=== PATIENT | male | born 1970 | race Caucasian/White ===

== ENCOUNTER 2020-04-21 05:23 | Inpatient (IN) | payer BC, SELFPAY ==
[2020-04-21] VITALS (7 sets, daily range): BP systolic 110–169; BP diastolic 56–92; PULSE 104–128; RESP 17–26; TEMP 37.2–37.9; O2SAT 96–99; BMI 32.1
--- NOTE | 2020-04-21 05:36 | EKG12_ITS ---
Test Reason : SOB Blood Pressure : / mmHG Vent. Rate : 120 BPM Atrial Rate : 120 BPM P-R Int : 140 ms QRS Dur : 090 ms QT Int : 328 ms P-R-T Axes : -05 055 -17 degrees QTc Int : 463 ms Sinus tachycardia Otherwise normal ECG Confirmed by RUBA HARKINS, MANN ([id number]), loan expeditor BRYCE MALAVE ([id number]) on 05/04/2020 9:49:40 A M Referred By: DR MATHIS Confirmed By:BUDDY YEH MD
--- NOTE | 2020-04-21 05:39 | ED.DCSUM_ITS ---
History of Present Illness Chief Complaint: General Illness Informant: Patient, Manager [employer] Onset: Yesterday Context: Gradual Onset Timing: Continuous Quality: mult sx Location: all over Current Severity: Severe Maximum Severity: Severe Worsened by: nothing Relieved by: nothing Associated Symptoms: watery nonbloody diarrhea, malaise, fevers/chills, myalgias, cough Narrative: Patient states he is feeling very bad, he started getting sick yesterday, severe myalgias, headache, fevers, he has had a mild nonproductive cough and feels mildly short of breath. Nonlateralizing nonpleuritic chest tightness. No recent leg pain or swelling. No history of DVT or PE. After starting to feel this way, he went to an urgent care yesterday and had an outpatient test for COVID-19 run, that is still pending. He has had no contact with anyone with COVID-19 that he knows of. He is healthy, takes medications for PTSD. - Past Medical History (1) PTSD (post-traumatic stress disorder) Status: Chronic Past Medical History - Allergies and Home Meds Allergies/Adverse Reactions: Allergies No Known Allergies Allergy (Verified 04/21/20 05:30) Smoking Status: Never smoker - Family History Paternal Family History: Reports: No pertinent history Review of Systems General: Reports: Chills, Fever, Malaise, Subjective, Sweats Eyes: Denies: Visual changes - bilaterally, Diplopia ENT: Reports: Rhinorrhea. Denies: Sore throat Cardiovascular: Reports: Chest pain. Denies: Palpitations Respiratory: Reports: Dyspnea, Cough. Denies: Sputum, Orthopnea Gastrointestinal: Reports: Diarrhea. Denies: Abdominal pain, Nausea, Vomiting, Melena, Hematochezia Genitourinary: Denies: Dysuria, Hematuria, Frequency Musculoskeletal: Reports: Myalgias. Denies: Neck pain, Swelling Skin: Denies: Rash, Wounds Neurological: Reports: Headache. Denies: Weakness, Numbness Physical Exam Vital Signs/Narrative: Vital Signs Temp Pulse Resp BP Pulse Ox 04/21/20 05:30 100.9 F H 124 H 21 H 123/90 H 95 04/21/20 05:29 124 H 29 H 123/90 H 95 04/21/20 05:24 100.3 F H 125 H 20 H 96 Inital Vital Signs reviewed: Yes General: Well nourished, Well developed, No Acute Distress Head: Normocephalic, Atraumatic Eyes: Perrl, EOMI ENT: Moist mucous membranes, No rhinorrhea Neck: Supple, Nontender, No lymphadenopathy, No JVD Cardiovascular: Regular rate, Regular rhythm, No murmurs, Tachycardia Respiratory: No distress, CTA bilaterally, Chest nontender Abdomen: Soft, Nontender, Nondistended, Hyperactive bowel sounds Back: Nontender, Normal Inspection. Negative for: CVA tenderness Extremities: Nontender, No edema. Negative for: Calf Tenderness Skin: Normal color, No rash, No Trauma Neurological: Alert, Oriented x3, Cranial nerves II-XII grossly intact, Normal Strength, Normal Sensation Psychological: Normal affect, Normal Mood Diagnostic/Tx/Re-eval Laboratory Tests 04/21/20 04/21/20 04/21/20 Range/Units 05:35 05:35 05:35 WBC 24.3 H (4.4-11.0) K/mm3 RBC 6.17 (4.6-6.2) M/mm3 Hgb 15.3 (13.0-16.5) g/dL Hct 47.0 (40-54) % MCV 76.2 L (80-94) fL MCH 24.8 L (27.0-32.0) pg MCHC 32.6 (32-36) g/dL RDW Std Deviation 41.4 (35.1-43.9) fl RDW Coeff of Angella 16.2 H (11.6-14.6) % Plt Count 268 (150-450) K/mm3 MPV 10.7 (6.2-12.0) fl Immature Gran % (Auto) 0.600 (0.0-0.9) % Neut % (Auto) 92.2 H (47-70) % Lymph % (Auto) 3.6 L (19-41) % Rosebud % (Auto) 3.0 (0-10) % Eos % (Auto) 0.4 (0-5) % Baso % (Auto) 0.2 (0-1) % Absolute Neuts (auto) 22.4 H (2.0-7.7) X10^3/uL Absolute Lymphs (auto) 0.87 (0.83-4.51) X10^3/uL Nucleated RBC % 0 (0-5) % Differential Comment SCANNED Sodium 130 L (136-145) mmol/L Potassium 2.7 L* (3.5-5.1) mmol/L Chloride 104 (98-107) mmol/L Carbon Dioxide 14.0 L (21.0-32.0) mmol/L Anion Gap 12 (5-15) BUN 20 H (7-18) mg/dL Creatinine 2.18 H (0.70-1.30) mg/dL Estim Creat Clear Calc 47.13 ml/min Est GFR (MDRD) Af Amer 41 L (>60) mL/min Est GFR (MDRD) Non-Af 34 L (>60) mL/min BUN/Creatinine Ratio 9.2 L (10-20) RATIO Glucose 161 H (74-106) mg/dL Lactic Acid 2.0 (0.4-1.9) mmol/L Calcium 8.0 L (8.5-10.1) mg/dL Total Bilirubin 0.70 (0.20-1.00) mg/dL AST 13 L (15-37) U/L ALT 19 (16-61) U/L Alkaline Phosphatase 144 H (45-117) U/L Troponin I < 0.015 (<0.045) ng/mL Total Protein 8.6 H (6.4-8.2) g/dL Albumin 3.5 (3.2-5.0) g/dL Globulin 5.1 H (2.2-4.2) g/dL Albumin/Globulin Ratio 0.7 L (0.9-2.4) RATIO - Rhythm Strip Rhythm Strip: Sinus Tach Rate: 120 Ectopy: None - EKG Initial EKG Interpretation: No Acute Injury Pattern, Sinus Tachycardia Prior: No Prior - Medical Decision Making Patient feeling a little better with IV fluids, Toradol, albuterol puffs from an MDI, and Tylenol for his fever. He has significant hypokalemia, and on my interpretation, 1 view chest x-ray appears to show right lower lobe pneumonia although radiology suggests it is more likely due to subsegmental atelectasis. With his significant leukocytosis, I chose to cover him empirically with antibiotics to cover pneumonia. Highly suspicious for COVID-19, so since he will need to be admitted, we reswabbed him so that we can get a stat result so that we can admit him to the appropriate unit. He is clinically and hemodynamically stable at this time. ED Disposition - Plan for ED Patient: Disposition: Acute Care Hospital [facility] Diagnosis: SILVINA (acute kidney injury), Hypokalemia due to excessive gastrointestinal loss of potassium, Dehydration, Severe sepsis, Lower respiratory tract infection
[2020-04-21 05:59] LABS: Absolute Lymphocyte Count 0.87 X10^3/uL (0.83-4.51); Absolute Neutrophil Count 22.4 X10^3/uL (2.0-7.7); Basophil# 0.05 X10^3/uL; Basophil% 0.2 % (0-1); Eosinophils% 0.4 % (0-5); Hemoglobin 15.3 g/dL (13.0-16.5); Lymphocyte # 0.87 X10^3/ul (4.0); Lymphocyte % 3.6 % (19-41); Mean Corp Hgb Conc 32.6 g/dL (32-36); Mean Corpuscular Hgb 24.8 pg (27.0-32.0); Mean Corpuscular Volume 76.2 fL (80-94); Mean Platelet Vol. 10.7 fl (6.2-12.0); Monocyte# 0.72 X10^3/uL; NRBC Flagged by Analyzer 0 % (0-5); Neutrophil # 22.44 X10^3/uL (2.7-7.7); Neutrophil % 92.2 % (47-70); POSITIVE DIFFERENTIAL YES; POSITIVE MORPHOLOGY YES; Platelet Count 268 K/mm3 (150-450); RBC Distribution Width CV 16.2 % (11.6-14.6); RBC Distribution Width SD 41.4 fl (35.1-43.9); Red Blood Count 6.17 M/mm3 (4.6-6.2); White Blood Count 24.3 K/mm3 (4.4-11.0)
[2020-04-21] MEDS: Ketorolac 15 MG/ML Vial 30 MG IV (06:00)
[2020-04-21] MEDS: 0.9% Normal Saline 1,000 ML 999 ML IV (06:00)
[2020-04-21] MEDS: Acetaminophen 500 MG Tablet 1000 MG PO (06:01)
--- NOTE | 2020-04-21 06:02 | RAD_ITS ---
STUDY: X-RAY CHEST REASON FOR EXAM: Male, 49 years old. COUGH AND SOB TECHNIQUE: Single AP portable view of the chest. COMPARISON: None. FINDINGS: The lungs are underexpanded. Subsegmental atelectasis is noted in the right lung base. There is no demonstrated pleural abnormality. Normal size heart. Normal mediastinum and sanjana. Normal visualized pulmonary arteries. Normal visualized aortic arch and descending thoracic aorta. Normal visualized thoracic spine. There is degenerative osteoarthritis of the bilateral shoulders. There is no demonstrated abnormality of the visualized soft tissue structures of the upper abdomen. RAD/Chest 1 View (Portable) IMPRESSION: Degenerative changes, as described above. No demonstrated acute cardiopulmonary process. Electronically Signed: Karen Lopez, at 6:54 EDT Tel , Service support ,
[2020-04-21 06:04] LABS: Differential Indicated SCAN CRITERIA MET
[2020-04-21 06:45] LABS: Differential Comment SCANNED
[2020-04-21] MEDS: Ceftriaxone 1 GM/50 ML BAG IV (07:00)
[2020-04-21 07:06] LABS: ALB/GLOB Ratio 0.7 RATIO (0.9-2.4); AST(SGOT) 13 U/L (15-37); Alanine Aminotransfer ALT/SGPT 19 U/L (16-61); Albumin, Serum 3.5 g/dL (3.2-5.0); Alkaline Phosphatase 144 U/L (45-117); Anion Gap 12 (5-15); BUN 20 mg/dL (7-18); BUN/Creat Ratio 9.2 RATIO (10-20); Chloride 104 mmol/L (98-107); Creatinine, Serum 2.18 mg/dL (0.70-1.30); EST Glomerular Filtration Rate 34 mL/min (>60); Est Glom Filt Rate - Afr Amer 41 mL/min (>60); Estimated Creatinine Clearance 47.13 ml/min; Globulin 5.1 g/dL (2.2-4.2); Glucose 161 mg/dL (74-106); Potassium 2.7 mmol/L (3.5-5.1); Protein, Total 8.6 g/dL (6.4-8.2); Sodium Level 130 mmol/L (136-145)
[2020-04-21] MEDS: Potassium Chloride 10mEq/100mL 10 MEQ/100 ML IV.SOLN. 100 MEQ IV BOLUS ×5 (07:48→14:37)
[2020-04-21] MEDS: 0.9% Normal Saline 1,000 ML 250 ML IV (07:50)
[2020-04-21 08:30] LABS: D-Dimer Quantitative (DVT/PE) 8.23 FEU/ug/m (0.27-0.49)
--- NOTE | 2020-04-21 09:09 | HP.PCM_ITS ---
History of Present Illness Date of Admission: 04/21/20 Mr Davison is 49 yo male who presented to the ED on 04/21/2020 with severe myalgias, DEJESUS, fevers, diaphoresis, a non-productive cough, decreased po intake and severe diarrhea that all started on but got significantly worse in the last 12-18 hrs. He states that his diarrhea is watery and profuse and that he has had about 10-12 BM overnight. He denies any recent abx usage or hospitalizations. He denies knowledge of any sick contacts but is from [place] and recently flew here as they are moving to [place] and he has business here. His only PMH is PTSD and takes medications only for this. His temp in the ED was 100.9 he is tachycardic and tachypneic. Sats are stable on RA. His white count is 24.3. His D-dimer is 8.23. He is mildly hyponatremic, markedly hypokalemic at 2.7, his HCO3 is 14, BUN is 20 and sCr is 2.18. COVID-19 is pending at admission. Past Medical History Past Medical History (Chronic Problems): Chronic Problems PTSD (post-traumatic stress disorder) (Chronic) Allergies No Known Allergies Allergy (Verified 04/21/20 05:30) Surgical History: noncontributory Psychiatric History: Post traumatic stress Lives: Spouse/ Significant Other Smoking Status: Never smoker Alcohol: Rare Drugs: None - *Family History Paternal History Items: No pertinent history Review of Systems Constitutional: Reports: Anorexia, Chills, Fever, Malaise, Weakness, Fatigue. Denies: Night Sweats, Weight Change Eyes: Denies: Blurred vision, Double vision, Drainage, Eyelid Inflammation, Pain, Redness, Vision Change HEENT: Reports: Head Aches. Denies: Difficulty Hearing, Difficulty Swallowing, Dysphasia, Ear Pain, Eye Pain, Hard of Hearing, Nasal bleeding, Nasal Congestion, Post Nasal Drip, Sinus Congestion, Sinus Drainage, Sore Throat, Visual Changes Cardiovascular: Denies: Chest Pain, Claudication, Chest Pressure, Chest Tightness, Edema, Heaviness, Light Headedness, Orthopnea, Palpitations, Paroxysmal Noc. Dyspnea, Syncope Respiratory: Reports: Cough, Shortness of Breath, Shortness of breath upon exertion. Denies: Hemoptysis, Pleuritic Pain, Shortness of breath at rest, Sputum production, Wheezing Gastrointestinal: Reports: Diarrhea. Denies: Abdominal Pain, Constipation, Dyspepsia, Hematemesis, Hematochezia, Nausea, Melena, Vomiting Genitourinary: Denies: Dysuria, Frequency, Hematuria, Hesitancy, Incontinence, Nocturia, Retention, Urgency Musculoskeletal: Reports: Muscle pain. Denies: Arm Pain, Back Pain, Foot Pain, Hand Pain, Joint Pain, Joint stiffness, Joint swelling, Joint Tenderness, Leg Pain, Neck Pain, Shoulder Pain Skin: Denies: Dryness, Jaundice, Lesions, Pruritis, Rash, Skin Changes, Wounds Neurological: Reports: Headaches. Denies: Balance problems, Blurred vision, Double vision, Change in Speech, Slurred speech, Confusion, Difficulty swallowing, Focal weakness, Incoordination, Numbness, Tingling, Tremor, Seizures Psychiatric: Reports: Anxiety, Depression Endocrine: Denies: Change in Body Habitus, Heat/ Cold Intolerance, Polydipsia, Polyuria Hematologic/ Lymphatic: Denies: Adenopathy, Anemia, Easy Bruising, Easy Bleeding, Petechiae, Purpura VTE Information - Inpt Only VTE Present on Admission: No VTE Mechan Device Prophylaxis: None VTE Pharm Prophylaxis ordered?: Yes Patient Problems: Active and Suspected Problems 2019 novel coronavirus disease (COVID-19) (Acute) SILVINA (acute kidney injury) (Acute) Hypokalemia due to excessive gastrointestinal loss of potassium (Acute) Dehydration (Acute) Severe sepsis (Acute) - Physical Exam Vitals/I&O's: Vital Signs Temp Pulse Resp BP Pulse Ox 98.2 F 98 20 H 114/80 99 04/21/20 08:09 04/21/20 08:09 04/21/20 08:09 04/21/20 08:09 04/21/20 08:09 Oxygen Delivery Method Room Air Weight: 113.398 kg Body Mass Index (BMI) 32.1 Intake and Output for Last 24 Hours 04/19/20 04/20/20 04/21/20 23:59 23:59 23:59 Intake Total 1050 / 1050 Balance 1050 / 1050 General: Alert, Oriented x3, Cooperative, Well developed, Well nourished, - - diaphoretic and toxic appearing HEENT: Atraumatic, PERRLA, EOMI, Normocephalic, EAC Clear Oral: Moist Mucosa, No Gingival or Mucosal Lesions/ Ulcerations Neck: Supple, No JVD, Negative Carotid Bruits, Negative Hepatojugular Reflux, No Nodes, No Nuchal Rigidity, Trachea Midline, Thyroid Normal Size and Texture Lungs: Clear to auscultation, Normal air movement, No rhonchi, No wheeze, No rales Cardiovascular: Regular Rhythm, Normal S1, Normal S2, No murmurs, No Ectopic Activity, Tachycardic Abdomen: Bowel Sounds Present, Soft, Non Tender, Non-Distended, No Hepato- splenomegaly, No hernias noted Extremities: No clubbing, No cyanosis, No edema, Capillary Refill Less than 3 Seconds, Peripheral Pulses Normal Skin: No rashes, No breakdown Musculoskeletal: No Tenderness to Palpation of Joints or Extremities, No Muscle Wasting Lymphatic: No Cervical, Supraclavicular, or Inguinal Adenopathy Neurological: Cranial nerves II-XII grossly intact, Deep Tendon Reflexes 2+/4 and Symmetrical, Neuro grossly intact, Motor Exam 5/5 strength throughout, Muscle tone normal, Sensory exam intact to light touch and pain, Coordination normal Psych/Mental Status: Normal Affect, Appropriate, Alert and oriented to time, place, person, mood and affect Laboratory Results 04/21/20 05:35: WBC 24.3 H, RBC 6.17, Hgb 15.3, Hct 47.0, MCV 76.2 L, MCH 24.8 L , MCHC 32.6, RDW Std Deviation 41.4, RDW Coeff of Angella 16.2 H, Plt Count 268, MPV 10.7, Immature Gran % (Auto) 0.600, Neut % (Auto) 92.2 H, Lymph % (Auto) 3.6 L, [place] % (Auto) 3.0, Eos % (Auto) 0.4, Baso % (Auto) 0.2, Absolute Neuts (auto) 22.4 H, Absolute Lymphs (auto) 0.87, Nucleated RBC % 0, Differential Comment S CANNED 04/21/20 05:35: Sodium 130 L, Potassium 2.7 L*, Chloride 104, Carbon Dioxide 14.0 L, Anion Gap 12, BUN 20 H, Creatinine 2.18 H, Estim Creat Clear Calc 47.13, Est GFR (MDRD) Af Amer 41 L, Est GFR (MDRD) Non-Af 34 L, BUN/Creatinine Ratio 9.2 L, Glucose 161 H, Calcium 8.0 L, Total Bilirubin 0.70, AST 13 L, ALT 19, Alkaline Phosphatase 144 H, Troponin I < 0.015, Total Protein 8.6 H, Albumin 3.5, Globulin 5.1 H, Albumin/Globulin Ratio 0.7 L 04/21/20 05:35: Lactic Acid 2.0 04/21/20 05:55: D-Dimer Quant (PE/DVT) 8.23 H* 04/21/20 07:05: COVID-19 (LINDA) Pending Current Medications Sodium Chloride () 1,000 mls @ 999 mls/hr IV .Q1H1M ALEX Last Admin: 04/21/20 07:50 Dose: 250 mls/hr Documented by: Assessment/Plan All Active Problems 2018 novel coronavirus disease (COVID-19) (Acute) SILVINA (acute kidney injury) (Acute) Hypokalemia due to excessive gastrointestinal loss of potassium (Acute) Dehydration (Acute) Severe sepsis (Acute) Severe Sepsis 2/2 Suspected COVID-19 -COVID pending--> high suspicion for positive and if neg will repeat in 48 hrs -will get resp viral panel if neg COVID -supportive care -start Decadron 6 mg daily (day 07/15) -Heparin ggt -hold on Remdesivir and Convalescent plasma as pt is on RA -CTX and Azithro for now -cx pending -apap for fever SILVINA -per pt no known renal disease at baseline -LR at 150 cc/hr for now -repeat BMP in am Metabolic Acidosis -suspect 2/2 diarrhea and SILVINA -check VBG -repeat AM lab Diarrhea -likely related to COVID -will check enteric panel -no recent abx use -if panel neg will start prn Imodium -IVF to maintain hydration Hypokalemia -40 mEq IV -recheck and mag in am Hyponatremia -likely hypovolemic in nature -IVF and repeat in am Elevated D-dimer -with SILVINA unable to CTA now -start heparin ggt and transition to LMWH vs NOAC as renal fx allows -CTA once renal fxn improved to drive length of treatment PTSD -will start meds once doses are known DVT prophylaxis -hep ggt Code Status -Full Inpatient E&M: 71631 Init Hosp L3
[2020-04-21 09:55] LABS: Reflex Lactate? Y
[2020-04-21 10:38] LABS: Lactic Acid 1.9 mmol/L (0.4-1.9)
[2020-04-21 10:42] LABS: Blood Gas Specimen Type VEN; O2 Delivery Device Room Air; VBG BASE EXCESS -10 mmol/L (-1.0-3.5); VBG Bicarbonate 18 mmol/L (22-26); VBG PO2 24 mmHg (25-40); VBG SO2 33 % (50-70); VBG TCO2 19 mmol/L (23-33); VBG pCO2 40.3 mmHg (41-51); VBG pH 7.25 (7.32-7.42)
[2020-04-21] MEDS: Lactated Ringers 1,000 ML 150 ML IV (10:45)
[2020-04-21] MEDS: Loperamide 2 MG Capsule PO (13:08)
[2020-04-21] MEDS: Acetaminophen 325 MG Tablet 650 MG PO ×2 (13:08→20:13)
[2020-04-21] MEDS: Lactated Ringers 1,000 ML 200 ML IV ×2 (15:40→20:24)
[2020-04-21] MEDS: busPIRone 5 MG Tablet 10 MG PO (21:31)
[2020-04-21] MEDS: Gabapentin 300 MG Capsule PO (21:32)
[2020-04-21] MEDS: Temazepam 15 MG Capsule 30 MG PO (21:32)
[2020-04-21] MEDS: Topiramate 100 MG Tablet PO (21:32)
[2020-04-22] VITALS (13 sets, daily range): BP systolic 93–146; BP diastolic 56–85; PULSE 81–159; RESP 15–20; TEMP 36.4–38.6; O2SAT 97–100
[2020-04-22] MEDS: Lactated Ringers 1,000 ML 200 ML IV ×4 (02:00→21:05)
[2020-04-22] MEDS: busPIRone 5 MG Tablet 10 MG PO (05:27)
[2020-04-22] MEDS: Acetaminophen 325 MG Tablet 650 MG PO ×3 (05:27→21:51)
[2020-04-22] MEDS: Gabapentin 300 MG Capsule PO ×2 (05:27→21:48)
[2020-04-22 05:29] LABS: Basophil# 0.02 X10^3/uL; Basophil% 0.2 % (0-1); Eosinophil# 0.04 X10^3/uL; Eosinophils% 0.4 % (0-5); Hematocrit 42.3 % (40-54); Hemoglobin 13.7 g/dL (13.0-16.5); Lymphocyte % 7.1 % (19-41); Mean Corp Hgb Conc 32.4 g/dL (32-36); Mean Corpuscular Hgb 24.5 pg (27.0-32.0); Mean Corpuscular Volume 75.7 fL (80-94); Mean Platelet Vol. 11.1 fl (6.2-12.0); Monocyte# 0.36 X10^3/uL; Monocyte% 3.2 % (0-10); NRBC Flagged by Analyzer 0 % (0-5); Neutrophil # 9.97 X10^3/uL (2.7-7.7); Neutrophil % 88.6 % (47-70); POSITIVE MORPHOLOGY YES; Platelet Count 208 K/mm3 (150-450); RBC Distribution Width CV 15.2 % (11.6-14.6); RBC Distribution Width SD 41.1 fl (35.1-43.9); Red Blood Count 5.59 M/mm3 (4.6-6.2); White Blood Count 11.3 K/mm3 (4.4-11.0)
[2020-04-22 05:39] LABS: Differential Indicated SCAN CRITERIA MET
[2020-04-22 05:51] LABS: ALB/GLOB Ratio 0.6 RATIO (0.9-2.4); AST(SGOT) 18 U/L (15-37); Alanine Aminotransfer ALT/SGPT 17 U/L (16-61); Albumin, Serum 2.8 g/dL (3.2-5.0); Alkaline Phosphatase 117 U/L (45-117); Anion Gap 8 (5-15); BUN 26 mg/dL (7-18); Calcium,Total 8.2 mg/dL (8.5-10.1); Chloride 105 mmol/L (98-107); EST Glomerular Filtration Rate 38 mL/min (>60); Est Glom Filt Rate - Afr Amer 46 mL/min (>60); Estimated Creatinine Clearance 51.38 ml/min; Globulin 4.5 g/dL (2.2-4.2); Glucose 117 mg/dL (74-106); Magnesium 1.6 mg/dL (1.6-2.6); Phosphorus 2.3 mg/dL (2.5-4.9); Protein, Total 7.3 g/dL (6.4-8.2); Sodium Level 132 mmol/L (136-145); Thyroid Stim Hormone (TSH) 0.37 uIU/mL (0.358-3.74)
[2020-04-22 05:56] LABS: Differential Comment SCANNED
[2020-04-22] MEDS: Morphine 2 MG/ML Syringe IV ×5 (08:44→21:50)
[2020-04-22] MEDS: 0.9% Saline Lock 10 ML Syringe IV ×5 (08:45→21:52)
[2020-04-22] MEDS: dexAMETHasone 4 MG Tablet 6 MG PO (08:55)
[2020-04-22] MEDS: Topiramate 100 MG Tablet PO ×2 (08:58→21:48)
--- NOTE | 2020-04-22 09:38 | PCM.PN.HOSP ---
Patient Problems: Active and Suspected Problems SILVINA (acute kidney injury) (Acute) Hypokalemia due to excessive gastrointestinal loss of potassium (Acute) Dehydration (Acute) Severe sepsis (Acute) Lower respiratory tract infection (Acute) Subjective: Pt states that he is still having a lot of diarrhea but per nsg volumes have decreased some. He is still having rigors at times but looks much more comfortable right now than he did in the ED yesterday. Has had a persistent DEJESUS. ED did give him Toradol and he stated that it worked but he has SILVINA. Admits to chewing 1 can of tobacco a day. States that he at at [facility] in [place] the day he started with sx. Vitals/I&O's: Vital Signs Temp Pulse Resp BP Pulse Ox 99.5 F H 95 20 H 125/77 H 98 04/22/20 08:42 04/22/20 08:42 04/22/20 08:42 04/22/20 08:42 04/22/20 08:42 Oxygen Delivery Method Room Air Weight: 88.7 kg Body Mass Index (BMI) 32.1 Intake and Output for Last 24 Hours 04/20/20 04/21/20 04/22/20 23:59 23:59 23:59 Intake Total 4329.17 / 5029.17 3396.67 / 3396.67 Output Total 750 / 750 Balance 4329.17 / 5029.17 2646.67 / 2646.67 General: Alert, Oriented x3, Cooperative, No apparent distress, Well developed, Well nourished, - - appears much less toxic today HEENT: Atraumatic, PERRLA, EOMI, Normocephalic, EAC Clear Oral: Moist Mucosa, No Gingival or Mucosal Lesions/ Ulcerations Neck: Supple, No JVD, Trachea Midline, Thyroid Normal Size and Texture Lungs: Clear to auscultation, Normal air movement, No rhonchi, No wheeze, No rales Cardiovascular: Regular rate, Regular Rhythm, Normal S1, Normal S2, No murmurs, No Ectopic Activity, No rub noted, No Gallop Abdomen: Bowel Sounds Present, Soft, Non Tender, Non-Distended, No hernias noted Extremities: No clubbing, No cyanosis, No edema, Capillary Refill Less than 3 Seconds, Peripheral Pulses Normal Skin: No rashes, No breakdown Musculoskeletal: No Tenderness to Palpation of Joints or Extremities, No Muscle Wasting Lymphatic: No Cervical, Supraclavicular, or Inguinal Adenopathy Neurological: Cranial nerves II-XII grossly intact, Neuro grossly intact, Muscle tone normal, Coordination normal Psych/Mental Status: Normal Affect, Appropriate, Alert and oriented to time, place, person, mood and affect Microbiology Past 72 Hours 04/21/20 05:35 Blood Culture (Wb) - Right Hand Blood Culture - Preliminary 04/21/20 05:35 Blood Culture (Wb) - Anticubital Right Blood Culture - Preliminary 04/21/20 08:15 Stool Enteric Bacteriology - Final Salmonella Sp. 04/21/20 08:15 Stool C. difficile DNA Amplification - Final Laboratory Results 04/21/20 07:05: COVID-19 (LINDA) Not Detected 04/21/20 10:05: Lactic Acid 1.9 04/21/20 10:14: Specimen Type MEHNAZ, VBG pH 7.25 L, VBG pO2 24 L, VBG HCO3 18 L, VBG O2 Sat (Calc) 33 L, VBG Base Excess -10 L, POC Mix VBG pCO2 Pt Tmp 40.3 L, O2 Delivery Device Room Air, POC Venous Total CO2 19 L 04/22/20 05:10: WBC 11.3 H, RBC 5.59, Hgb 13.7, Hct 42.3, MCV 75.7 L, MCH 24.5 L, MCHC 32.4, RDW Std Deviation 41.1, RDW Coeff of Angella 15.2 H, Plt Count 208, MPV 11.1, Immature Gran % (Auto) 0.500, Neut % (Auto) 88.6 H, Lymph % (Auto) 7.1 L, [place] % (Auto) 3.2, Eos % (Auto) 0.4, Baso % (Auto) 0.2, Absolute Neuts (auto) 10.0 H, Absolute Lymphs (auto) 0.80 L, Nucleated RBC % 0, Differential Comment SCANNED 04/22/20 05:10: Sodium 132 L, Potassium 3.0 L, Chloride 105, Carbon Dioxide 19.0 L, Anion Gap 8, BUN 26 H, Creatinine 2.00 H, Estim Creat Clear Calc 51.38, Est GFR (MDRD) Af Amer 46 L, Est GFR (MDRD) Non-Af 38 L, BUN/Creatinine Ratio 13.0, Glucose 117 H, Calcium 8.2 L, Phosphorus 2.3 L, Magnesium 1.6, Total Bilirubin 0.60, AST 18, ALT 17, Alkaline Phosphatase 117, Total Protein 7.3, Albumin 2.8 L, Globulin 4.5 H, Albumin/Globulin Ratio 0.6 L, TSH 0.37 04/22/20 07:35: COVID-19 (LINDA) Pending Current Medications Acetaminophen (Acetaminophen 325 Mg Tablet) 650 mg PO Q6H PRN PRN PRN Reason: Pain Score 1-10/Temp > 100.7 F Last Admin: 04/22/20 05:27 Dose: 650 mg Documented by: Al Hydroxide/Mg Hydroxide (Mag Hydrox/Al Hydrox/Simeth 30 Ml Udc) 30 ml PO Q6H PRN PRN PRN Reason: Gastric Burning Albuterol Sulfate (Albuterol 2.5 Mg/3 Ml Vial.Neb.) 2.5 mg INHALATION Q2H PRN PRN PRN Reason: Shortness of Breath/Wheezing Buspirone HCl (Buspirone 5 Mg Tablet) 10 mg PO TID [facility] Last Admin: 04/22/20 05:27 Dose: 10 mg Documented by: Dexamethasone (Dexamethasone 4 Mg Tablet) 6 mg PO DAILY@0800 [facility] Stop: 05/02/20 08:01 Last Admin: 04/22/20 08:55 Dose: 6 mg Documented by: Gabapentin (Gabapentin 300 Mg Capsule) 300 mg PO TID [facility] Last Admin: 04/22/20 05:27 Dose: 300 mg Documented by: Lactated Ringer's () 1,000 mls @ 200 mls/hr IV .Q5H [facility] Last Infusion: 04/22/20 08:41 Dose: 0 mls/hr Documented by: Azithromycin 500 mg/ Dextrose 255 mls @ 250 mls/hr IV Q24 [facility] Last Admin: 04/22/20 08:41 Dose: 250 mls/hr Documented by: Ceftriaxone Sodium 2 gm/ (Sodium Chloride) 50 mls @ 100 mls/hr IV Q24 [facility] Sodium Chloride () 250 mls @ 15 mls/hr IV .[id number] PRN PRN Reason: Saline Flush Sodium Chloride () 250 mls @ 15 mls/hr IV .[id number] PRN PRN Reason: Additional IVPB Infusion Influenza Virus Vaccine Quadrival (Influenza Vaccine (6mos+)/Pf 0.5 Ml Syringe) 0.5 ml IM .ONCE ONE Stop: 04/22/20 10:01 Last Admin: 04/22/20 09:03 Dose: 0.5 ml Documented by: Lidocaine (Lidocaine 5% Patch) 1 patch TOPICAL DAILY PRN PRN Reason: Pain Score 1-10 Loperamide HCl (Loperamide 2 Mg Capsule) 2 mg PO Q4H PRN PRN PRN Reason: Diarrhea Last Admin: 04/21/20 13:08 Dose: 2 mg Documented by: Melatonin (Melatonin 3 Mg Tablet) 3 mg PO QHS PRN PRN PRN Reason: INSOMNIA Morphine Sulfate (Morphine 2 Mg/Ml Syringe) 2 mg IV Q3H PRN PRN PRN Reason: Pain Score 6-10 Last Admin: 04/22/20 08:44 Dose: 2 mg Documented by: Nicotine (Nicotine 21 Mg Patch) 21 mg TRANSDERM. DAILY [facility] Last Admin: 04/22/20 08:56 Dose: 21 mg Documented by: Non-Formulary Medication (Vortioxetine Hydrobromide) 10 mg PO DAILY [facility] Ondansetron HCl (Ondansetron 4 Mg/2 Ml Vial) 4 mg IV Q8H PRN PRN PRN Reason: NAUSEA/VOMITING Senna/Docusate Sodium (Senna/Docusate Sodium 1 Tablet) 2 tablet PO BID PRN PRN PRN Reason: Constipation Sodium Chloride (0.9% Saline Lock 10 Ml Syringe) 10 - 40 ml IV UD PRN PRN Reason: SALINE FLUSH Last Admin: 04/22/20 08:45 Dose: 10 ml Documented by: Temazepam (Temazepam 15 Mg Capsule) 30 mg PO QHS [facility] Last Admin: 04/21/20 21:32 Dose: 30 mg Documented by: Throat Lozenges (Benzocaine/Menthol 1 Lozenge) 1 lozenge MUCOUS MEM Q2H PRN PRN PRN Reason: SORE THROAT Topiramate (Topiramate 100 Mg Tablet) 100 mg PO BID [facility] Last Admin: 04/22/20 08:58 Dose: 100 mg Documented by: STROKE Vital Signs/Narrative: Vital Signs Temp Pulse Resp BP Pulse Ox 04/22/20 08:42 99.5 F H 95 20 H 125/77 H 98 04/22/20 08:01 96 04/22/20 06:00 106 H Medical Necessity - Tobacco Use Smoking Status: Never smoker Assessment/Plan All Active Problems SILVINA (acute kidney injury) (Acute) Hypokalemia due to excessive gastrointestinal loss of potassium (Acute) Dehydration (Acute) Severe sepsis (Acute) Lower respiratory tract infection (Acute) Severe Sepsis 2/2 Salmonella Bacteremia -repeat COVID pending to r/o co-infection but suspect this is all from bacteremia -if neg may d/c precautions -still with intermittent fevers -pt with salmonella in his stool and GNR in 2/2 blood cx -continue CTX 2 gms q 24 hrs -repeat blood cx in am -if cx do not clear would consider further evaluation for aortic mycotic aneurysms -ID consulted SILVINA 2/2 ATN from dehydration -per pt no known renal disease at baseline -continue LR at 200 cc/hr -repeat BMP in am -if renal function not improving at this time would consider US and urine studies Metabolic Acidosis -suspect 2/2 diarrhea and SILVINA -improving Diarrhea -2/2 salmonella -no blood noted in stool -prn Imodium but use sparingly if able -IVF to maintain hydration DEJESUS -APAP and prn morphine Hypokalemia -40 mEq PO BID -recheck in am -mg wnl Hyponatremia -likely hypovolemic in nature -some improved but not resolved -IVF and repeat in am Elevated D-dimer -with SILVINA unable to CTA now -continue heparin ggt -CTA once renal fxn improved to drive treatment vs VQ scan in am PTSD -home meds restarted Tobacco Abuse -chews 1 can per day -nicotine patch DVT prophylaxis -hep ggt Code Status -Full Inpatient E&M: 03884 Subs Hosp L3
--- NOTE | 2020-04-22 11:36 | NURSING ---
Report Given to Beti Glez at this time. Pt is going to med surg.
--- NOTE | 2020-04-22 11:42 | NURSING ---
Shawna his was called by this nurse to inform her that her is going to med surg.
[2020-04-22 16:18] LABS: International Normalized Ratio 1.1; Prothrombin Time (Protime)PT. 13.7 SECONDS (11.7-14.9)
[2020-04-22] MEDS: HEPARIN/D5w 25,000 UNITS 25,000 UNITS/250 ML IV.SOLN. 12 UNITS IV (17:37)
[2020-04-22] MEDS: Heparin Injection (Vial) 5,000 UNIT/ML VIAL 6000 UNIT IV (17:43)
[2020-04-22] MEDS: Temazepam 15 MG Capsule 30 MG PO (21:48)
[2020-04-22] MEDS: Ensure Clear 120 ML Liquid PO (21:49)
[2020-04-23] VITALS (10 sets, daily range): BP systolic 102–121; BP diastolic 67–76; PULSE 67–84; RESP 18; TEMP 36.4–36.8; O2SAT 96–99
[2020-04-23 00:06] LABS: Partial Thromboplast Time 87.7 Seconds (24.1-36.2)
[2020-04-23] MEDS: Lactated Ringers 1,000 ML 200 ML IV ×4 (02:12→19:06)
[2020-04-23] MEDS: Gabapentin 300 MG Capsule PO ×3 (05:21→21:51)
[2020-04-23] MEDS: Morphine 2 MG/ML Syringe IV ×4 (05:32→20:21)
[2020-04-23] MEDS: 0.9% Saline Lock 10 ML Syringe IV ×5 (05:32→21:51)
[2020-04-23 07:04] LABS: Absolute Lymphocyte Count 0.59 X10^3/uL (0.83-4.51); Absolute Neutrophil Count 5.4 X10^3/uL (2.0-7.7); Basophil# 0.01 X10^3/uL; Basophil% 0.2 % (0-1); Hemoglobin 11.1 g/dL (13.0-16.5); Lymphocyte # 0.59 X10^3/ul (4.0); Lymphocyte % 9.2 % (19-41); Mean Corp Hgb Conc 32.6 g/dL (32-36); Mean Corpuscular Hgb 24.4 pg (27.0-32.0); Mean Corpuscular Volume 74.9 fL (80-94); Mean Platelet Vol. 10.8 fl (6.2-12.0); Monocyte# 0.37 X10^3/uL; Monocyte% 5.7 % (0-10); NRBC Flagged by Analyzer 0 % (0-5); Neutrophil # 5.43 X10^3/uL (2.7-7.7); Neutrophil % 84.3 % (47-70); POSITIVE DIFFERENTIAL YES; Platelet Count 209 K/mm3 (150-450); RBC Distribution Width SD 40.7 fl (35.1-43.9); Red Blood Count 4.54 M/mm3 (4.6-6.2); White Blood Count 6.4 K/mm3 (4.4-11.0)
[2020-04-23 07:08] LABS: Differential Indicated SCAN CRITERIA MET
[2020-04-23 07:15] LABS: Partial Thromboplast Time 52.7 Seconds (24.1-36.2)
[2020-04-23 07:30] LABS: ALB/GLOB Ratio 0.6 RATIO (0.9-2.4); AST(SGOT) 13 U/L (15-37); Alanine Aminotransfer ALT/SGPT 12 U/L (16-61); Albumin, Serum 2.4 g/dL (3.2-5.0); Alkaline Phosphatase 90 U/L (45-117); Anion Gap 10 (5-15); BUN 18 mg/dL (7-18); Calcium,Total 8.7 mg/dL (8.5-10.1); Chloride 113 mmol/L (98-107); EST Glomerular Filtration Rate 84 mL/min (>60); Est Glom Filt Rate - Afr Amer 102 mL/min (>60); Estimated Creatinine Clearance 102.75 ml/min; Globulin 3.8 g/dL (2.2-4.2); Glucose 145 mg/dL (74-106); Potassium 2.8 mmol/L (3.5-5.1); Protein, Total 6.2 g/dL (6.4-8.2); Sodium Level 140 mmol/L (136-145)
[2020-04-23 07:40] LABS: Microcytosis 1+; Ovalocyte 1+; Platelet Estimate ADEQUATE (ADEQ)
[2020-04-23] MEDS: Potassium Chloride 10mEq/100mL 10 MEQ/100 ML IV.SOLN. 100 MEQ IV BOLUS ×4 (09:09→12:30)
--- NOTE | 2020-04-23 09:45 | CASEMGMT ---
RN CM Face to Face with patient for initial transition planning/care coordination assessment. RN CM introduced self and role at [facility]. Patient lying in bed, alert and oriented. Patient willing to participate in assessment and is able to answer all questions appropriately. Care providers, pharmacy, and demographics verified. Patient wishes to discharge home, denies need for home health at this time. Patient states he has no further needs or concerns at this time. CM to follow for discharge planning needs that may arise. PCP: Mono michel [place] Specialists: none Preferred Pharmacy: [facility] retail Insurance: [place] Prescription Benefit: yes Living Will/HPOA: yes, Shawna Davison LNOK: Living Arrangements: Patient is traveling for [employer]. Patient lives with in 2 story home and is independent. Transportation: self, DME/HHC: Patient denies DME or previous HHC. Disposition Plan: Patient to discharge home with family support and follow-up plans in place. Virginie OBRIEN, RN, CM
[2020-04-23] MEDS: Topiramate 100 MG Tablet PO ×2 (10:26→21:51)
[2020-04-23] MEDS: Ensure Clear 120 ML Liquid PO ×4 (10:30→22:06)
--- NOTE | 2020-04-23 13:44 | PCM.PN.HOSP ---
Patient Problems: Active and Suspected Problems SILVINA (acute kidney injury) (Acute) Hypokalemia due to excessive gastrointestinal loss of potassium (Acute) Dehydration (Acute) Severe sepsis (Acute) Lower respiratory tract infection (Acute) Subjective: Patient seen and examined. He still complains of profuse diarrhea, and says he had a couple of accidents with bowel incontinence overnight. He denies nausea or vomiting, and denies any abdominal pain. Review of systems otherwise negative. He has remained hemodynamically stable.Potassium today is 2.8, and bicarb is also 17. Vitals/I&O's: Vital Signs Temp Pulse Resp BP Pulse Ox 97.8 F 75 18 115/76 98 04/23/20 09:00 04/23/20 09:00 04/23/20 09:00 04/23/20 09:00 04/23/20 09:00 Oxygen Delivery Method Room Air Weight: 250 lb 3.594 oz Body Mass Index (BMI) 32.1 Intake and Output for Last 24 Hours 04/21/20 04/22/20 04/23/20 23:59 23:59 23:59 Intake Total 4329.17 / 5029.17 6101.67 / 6101.67 2370.27 / 2370.27 Output Total 2325 / 2325 850 / 850 Balance 4329.17 / 5029.17 3776.67 / 3776.67 1520.27 / 1520.27 General: Alert, Oriented x3, Cooperative HEENT: Atraumatic, PERRLA, EOMI, Normocephalic Oral: Dry Mucosa Neck: Supple, No JVD, Negative Carotid Bruits Lungs: Clear to auscultation, Normal air movement, No rhonchi, No wheeze Cardiovascular: Regular rate, Regular Rhythm, Normal S1, Normal S2, No murmurs Abdomen: Bowel Sounds Present, Soft, - - mild generalised tenderness, no guarding or rebound tenderness. Extremities: No edema, Capillary Refill Less than 3 Seconds Skin: No rashes, No breakdown Musculoskeletal: No Tenderness to Palpation of Joints or Extremities Lymphatic: No Cervical, Supraclavicular, or Inguinal Adenopathy Neurological: Cranial nerves II-XII grossly intact, Neuro grossly intact, Motor Exam 5/5 strength throughout Psych/Mental Status: Normal Affect, Appropriate, Alert and oriented to time, place, person, mood and affect Microbiology Past 72 Hours 04/21/20 05:35 Blood Culture (Wb) - Anticubital Right Blood Culture - Preliminary Presumptive Salmonella Group 04/21/20 05:35 Blood Culture (Wb) - Right Hand Blood Culture - Preliminary Gram negative fili 04/21/20 08:15 Stool Enteric Bacteriology - Final Salmonella Sp. 04/21/20 08:15 Stool C. difficile DNA Amplification - Final Laboratory Results 04/22/20 14:45: PT 13.7, INR 1.1, APTT 37.0 H 04/22/20 23:37: APTT 87.7 H 04/23/20 06:30: WBC 6.4, RBC 4.54 L, Hgb 11.1 L, Hct 34.0 L, MCV 74.9 L, MCH 24.4 L, MCHC 32.6, RDW Std Deviation 40.7, RDW Coeff of Angella 15.0 H, Plt Count 209, MPV 10.8, Immature Gran % (Auto) 0.600, Neut % (Auto) 84.3 H, Lymph % (Auto) 9.2 L, [place] % (Auto) 5.7, Eos % (Auto) 0.0, Baso % (Auto) 0.2, Absolute Neuts (auto) 5.4, Absolute Lymphs (auto) 0.59 L, Nucleated RBC % 0, Platelet Estimate ADEQUATE, Microcytosis 1+, Ovalocytes 1+ 04/23/20 06:30: Sodium 140, Potassium 2.8 L, Chloride 113 H, Carbon Dioxide 17.0 L, Anion Gap 10, BUN 18, Creatinine 1.00, Estim Creat Clear Calc 102.75, Est GFR (MDRD) Af Amer 102, Est GFR (MDRD) Non-Af 84, BUN/Creatinine Ratio 18.0, Glucose 145 H, Calcium 8.7, Total Bilirubin 0.50, AST 13 L, ALT 12 L, Alkaline Phosphatase 90, Total Protein 6.2 L, Albumin 2.4 L, Globulin 3.8, Albumin/Globulin Ratio 0.6 L 04/23/20 06:30: APTT 52.7 H Diagnostic Data Chest X-Ray 04/21/20 06:02 IMPRESSION: Degenerative changes, as described above. No demonstrated acute cardiopulmonary process. Electronically Signed: Karen Lopez, at 6:54 EDT Tel , Service support , Current Medications Acetaminophen (Acetaminophen 325 Mg Tablet) 650 mg PO Q6H PRN PRN PRN Reason: Pain Score 1-10/Temp > 100.7 F Last Admin: 04/22/20 21:51 Dose: 650 mg Documented by: Al Hydroxide/Mg Hydroxide (Mag Hydrox/Al Hydrox/Simeth 30 Ml Udc) 30 ml PO Q6H PRN PRN PRN Reason: Gastric Burning Albuterol Sulfate (Albuterol 2.5 Mg/3 Ml Vial.Neb.) 2.5 mg INHALATION Q2H PRN PRN PRN Reason: Shortness of Breath/Wheezing Buspirone HCl (Buspirone 5 Mg Tablet) 10 mg PO TID [facility] Last Admin: 04/23/20 05:37 Dose: Not Given Documented by: Gabapentin (Gabapentin 300 Mg Capsule) 300 mg PO TID [facility] Last Admin: 04/23/20 05:21 Dose: 300 mg Documented by: Heparin Sodium (Porcine) (Heparin Injection (Vial) 5,000 Unit/Ml Vial) 0 unit IV UD PRN; Protocol PRN Reason: dose adjustment Lactated Ringer's () 1,000 mls @ 200 mls/hr IV .Q5H [facility] Last Admin: 04/23/20 06:45 Dose: 200 mls/hr Documented by: Ceftriaxone Sodium 2 gm/ (Sodium Chloride) 50 mls @ 100 mls/hr IV Q24 [facility] Last Infusion: 04/22/20 14:06 Dose: Infused Documented by: Sodium Chloride () 250 mls @ 15 mls/hr IV .[id number] PRN PRN Reason: Saline Flush Sodium Chloride () 250 mls @ 15 mls/hr IV .[id number] PRN PRN Reason: Additional IVPB Infusion Heparin Sodium/Dextrose () 25,000 units in 250 mls @ 12 mls/hr IV .[id number] [facility]; Protocol Last Titration: 04/23/20 07:34 Dose: 1,200 units/hr, 12 mls/hr Documented by: Lidocaine (Lidocaine 5% Patch) 1 patch TOPICAL DAILY PRN PRN Reason: Pain Score 1-10 Loperamide HCl (Loperamide 2 Mg Capsule) 2 mg PO Q4H PRN PRN PRN Reason: Diarrhea Last Admin: 04/21/20 13:08 Dose: 2 mg Documented by: Melatonin (Melatonin 3 Mg Tablet) 3 mg PO QHS PRN PRN PRN Reason: INSOMNIA Morphine Sulfate (Morphine 2 Mg/Ml Syringe) 2 mg IV Q3H PRN PRN PRN Reason: Pain Score 6-10 Last Admin: 04/23/20 10:26 Dose: 2 mg Documented by: Nicotine (Nicotine 21 Mg Patch) 21 mg TRANSDERM. DAILY [facility] Last Admin: 04/23/20 10:21 Dose: 21 mg Documented by: Non-Formulary Medication (Vortioxetine Hydrobromide) 10 mg PO DAILY [facility] Nutritional Formula (Lactose Free) (Ensure Clear 120 Ml Liquid) 120 ml PO 4X/DAY [facility] Last Admin: 04/23/20 10:30 Dose: 120 ml Documented by: Ondansetron HCl (Ondansetron 4 Mg/2 Ml Vial) 4 mg IV Q8H PRN PRN PRN Reason: NAUSEA/VOMITING Senna/Docusate Sodium (Senna/Docusate Sodium 1 Tablet) 2 tablet PO BID PRN PRN PRN Reason: Constipation Sodium Chloride (0.9% Saline Lock 10 Ml Syringe) 10 - 40 ml IV UD PRN PRN Reason: SALINE FLUSH Last Admin: 04/23/20 05:32 Dose: 10 ml Documented by: Temazepam (Temazepam 15 Mg Capsule) 30 mg PO QHS [facility] Last Admin: 04/22/20 21:48 Dose: 30 mg Documented by: Throat Lozenges (Benzocaine/Menthol 1 Lozenge) 1 lozenge MUCOUS MEM Q2H PRN PRN PRN Reason: SORE THROAT Topiramate (Topiramate 100 Mg Tablet) 100 mg PO BID [facility] Last Admin: 04/23/20 10:26 Dose: 100 mg Documented by: Medical Necessity - Tobacco Use Smoking Status: Never smoker Assessment/Plan All Active Problems SILVINA (acute kidney injury) (Acute) Hypokalemia due to excessive gastrointestinal loss of potassium (Acute) Dehydration (Acute) Severe sepsis (Acute) Lower respiratory tract infection (Acute) # Severe sepsid due to Salmonella bacteremia COVID testing x 2 were negative blood cultures and stool grew Salmonella repeat Blood cultuers pending on IV ceftriaxone ID consulted, awaiting recommendations #Diarrhea due to Salmonella infection Patient still complaining of profuse diarrhea and even having incontinence with bowel movements due to profuse diarrhea. Continue hydration with IV fluids. ID on board. #Non anion gap metabolic acidosis Bicarb is 17 with anion gap of 10. This likely due to diarrhea. Will hydrate gently and monitor. #Hypokalemia: Potassium is 2.8. Replace and monitor. #SILVINA: Resolved. Creatinine is down to 1 from 2.18 on admission. #Elevated D-dimer D-dimer was 8.33 on admission. CTA could not be done as patient had SILVINA. Patient was empirically started on heparin drip. Will do CTA today to rule out a PE so will consider heparin drip. DVT prophylaxis; currently on heparin drip. To stop if CTA of chest negative for PE Inpatient E&M: [id number] [facility] [[email or web address]] Hosp L3
--- NOTE | 2020-04-23 13:55 | CT_ITS ---
STUDY: CTA CHEST REASON FOR EXAM: Male, 49 years old. ELEV D DIMER, FEVER, DIAPHORESIS, COUGH, PT IN COVID PRECAUTIONS RADIATION DOSAGE (If Supplied By Facility): CTDIvol = ( 19.44 ) mGy, DLP = ( 487.41 ) mGycm TECHNIQUE: The examination was performed with the intravenous administration of IV 100mL Isovue-370. Post-processing of the angiographic images was performed, with multiplanar reformation and 3D reconstruction. Individualized dose optimization techniques were used for this CT. COMPARISON: Chest x-ray 04/21/2020 FINDINGS: Normal enhancement of the main pulmonary artery and right and left pulmonary arteries. Normal enhancement of the bilateral peripheral pulmonary arteries. There is no demonstrated pulmonary embolism. Normal thoracic aorta and visualized great vessels. There is no demonstrated aortic dissection. Normal heart and pericardium. Normal mediastinum. Normal hilar regions. Normal visualized trachea and bronchi. The lungs are well expanded. Normal pulmonary parenchyma. Normal pleura. Normal chest wall structures. Normal osseous structures. Normal visualized upper abdomen. CT/CTA Chest W/WO Contrast IMPRESSION: Normal CTA chest examination, without a demonstrated pulmonary embolism or arterial dissection. Electronically Signed: Nic Li MD at 15:47 EDT Tel , Service support ,
[2020-04-23 14:03] LABS: Partial Thromboplast Time 43.5 Seconds (24.1-36.2)
--- NOTE | 2020-04-23 15:23 | PCM.HP.ID ---
Problem List (1) Salmonella bacteremia Status: Acute Reason for Consult: salmonella Consulted by: Dr. Reed History of Present Illness: The patient is a 49 year old M developed sudden onset fever, rigors, and profuse diarrhea. No blood in stool. Thought it might be covid, came to ED. No sick contacts. No chest pain. Covid neg. Salmonella (+) in stool and bcx. Feeling better on ceftriaxone. Full ROS performed and neg except as noted above. - Medical History Past Medical History (Chronic Problems): Chronic Problems PTSD (post-traumatic stress disorder) (Chronic) Allergies/Adverse Reactions: Allergies No Known Allergies Allergy (Verified 04/21/20 05:30) Home Medications: Ambulatory Orders Medication Instructions Recorded Gabapentin 300 mg PO TID 04/21/20 Lidocaine 1 ea TP DAILY PRN 04/21/20 Temazepam 30 mg PO QHS 04/21/20 Testosterone 30 mg TD DAILY 04/21/20 Topiramate 100 mg PO BID 04/21/20 Vortioxetine Hydrobromide 10 mg PO DAILY 04/21/20 [Trintellix] busPIRone [Buspar] 10 mg PO TID 04/21/20 - Social History Tobacco Use: non-smoker Vital Signs Temp Pulse Resp BP Pulse Ox 97.8 F 79 18 115/76 98 04/23/20 09:00 04/23/20 14:00 04/23/20 09:00 04/23/20 09:00 04/23/20 09:00 Oxygen Delivery Method Room Air Weight: 113.5 kg Body Mass Index (BMI) 32.1 Microbiology Past 72 Hours 04/21/20 05:35 Blood Culture - Preliminary Blood Culture (Wb) - Anticubital Right Presumptive Salmonella Group 04/21/20 05:35 Blood Culture - Preliminary Blood Culture (Wb) - Right Hand Gram negative fili 04/21/20 08:15 Enteric Bacteriology - Final Stool Salmonella Sp. C. difficile DNA Amplification - Final Laboratory Tests Past 24 Hrs 04/22/20 04/22/20 04/23/20 14:45 23:37 06:30 WBC 6.4 RBC 4.54 L Hgb 11.1 L Hct 34.0 L MCV 74.9 L MCH 24.4 L MCHC 32.6 RDW Std Deviation 40.7 RDW Coeff of Angella 15.0 H Plt Count 209 MPV 10.8 Immature Gran % (Auto) 0.600 Neut % (Auto) 84.3 H Lymph % (Auto) 9.2 L [place] % (Auto) 5.7 Eos % (Auto) 0.0 Baso % (Auto) 0.2 Absolute Neuts (auto) 5.4 Absolute Lymphs (auto) 0.59 L Nucleated RBC % 0 Platelet Estimate ADEQUATE Microcytosis 1+ Ovalocytes 1+ PT 13.7 INR 1.1 APTT 37.0 H 87.7 H Sodium Potassium Chloride Carbon Dioxide Anion Gap BUN Creatinine Estim Creat Clear Calc Est GFR (MDRD) Af Amer Est GFR (MDRD) Non-Af BUN/Creatinine Ratio Glucose Calcium Total Bilirubin AST ALT Alkaline Phosphatase Total Protein Albumin Globulin Albumin/Globulin Ratio 04/23/20 04/23/20 04/23/20 06:30 06:30 13:43 WBC RBC Hgb Hct MCV MCH MCHC RDW Std Deviation RDW Coeff of Angella Plt Count MPV Immature Gran % (Auto) Neut % (Auto) Lymph % (Auto) [place] % (Auto) Eos % (Auto) Baso % (Auto) Absolute Neuts (auto) Absolute Lymphs (auto) Nucleated RBC % Platelet Estimate Microcytosis Ovalocytes PT INR APTT 52.7 H 43.5 H Sodium 140 Potassium 2.8 L Chloride 113 H Carbon Dioxide 17.0 L Anion Gap 10 BUN 18 Creatinine 1.00 Estim Creat Clear Calc 102.75 Est GFR (MDRD) Af Amer 102 Est GFR (MDRD) Non-Af 84 BUN/Creatinine Ratio 18.0 Glucose 145 H Calcium 8.7 Total Bilirubin 0.50 AST 13 L ALT 12 L Alkaline Phosphatase 90 Total Protein 6.2 L Albumin 2.4 L Globulin 3.8 Albumin/Globulin Ratio 0.6 L - Other Studies Radiology: [] reviewed Other Studies: [] Route of nutrition/ use of supplements: [] Nutritional Intake: [] IV Site: [] Beavers Catheter: [] - Physical Exam General: Alert, Oriented x3, Cooperative, No apparent distress HEENT: Atraumatic, PERRLA, EOMI Neck: Supple, No Nodes Lungs: Clear to auscultation, Normal air movement Cardiovascular: Regular rate, Regular Rhythm Abdomen: Soft, Non Tender, Non-Distended Extremities: No edema Skin: No rashes IV Site: Peripheral, without redness Musculoskeletal: No Tenderness to Palpation of Joints or Extremities Neurological: Cranial nerves II-XII grossly intact - Assessment/Plan Antibiotics: [] Assessment/Plan: [] Active and Suspected Problems SILVINA (acute kidney injury) (Acute) Hypokalemia due to excessive gastrointestinal loss of potassium (Acute) Dehydration (Acute) Severe sepsis (Acute) Lower respiratory tract infection (Acute) salmonella bacteremia with SILVINA - silvina resolved. On ceftriaxone, fever resolved. Ok for d/c home on 10 days of po cipro 500mg bid. Will follow, thank you
[2020-04-23] MEDS: Heparin 10,000 UNITS/10 ML Vial 1000 UNITS IV (15:44)
--- NOTE | 2020-04-23 15:55 | CHAPLAIN ---
Type of Pastoral Visit ___ Initial Visit ___ Follow-up Visit ___ On-call Visit ___ General Patient Visit ___ Spiritual Assessment ___ Family Conference ___ Bereavement ___ Rapid Response ___ Code Blue _x__ Other (describe below) Pastoral Care Referral From _x__ Patient ___ Family ___ Nurse ___ Physician ___ Equipment Service Technician ___ Trial Management Associate ___ Other (describe below) Sacrament/Intervention ___ Active listening ___ Anointing ___ Hinduism ___ Bereavement ___ Communion ___ Tiffanie exploration ___ ___ Life review ___ Prayer ___ Reconciliation ___ Sacrament of Sick _x__ Supportive presence ___ Wedding _x__ Other (describe below) Pastoral Comments patient was out of room for a test but spouse was in room; offer of support to spouse
[2020-04-23] MEDS: Acetaminophen 325 MG Tablet 650 MG PO (20:20)
[2020-04-23] MEDS: Temazepam 15 MG Capsule 30 MG PO (21:51)
[2020-04-23 21:55] LABS: Partial Thromboplast Time 31.5 Seconds (24.1-36.2)
[2020-04-24] VITALS (11 sets, daily range): BP systolic 107–131; BP diastolic 62–81; PULSE 66–98; RESP 18; TEMP 36.3–37.3; O2SAT 95–100
[2020-04-24] MEDS: Lactated Ringers 1,000 ML 200 ML IV ×6 (00:33→23:38)
[2020-04-24] MEDS: Gabapentin 300 MG Capsule PO ×3 (05:35→20:49)
[2020-04-24] MEDS: Morphine 2 MG/ML Syringe IV ×3 (05:40→20:37)
[2020-04-24] MEDS: 0.9% Saline Lock 10 ML Syringe IV (05:40)
[2020-04-24 06:12] LABS: Absolute Lymphocyte Count 1.33 X10^3/uL (0.83-4.51); Absolute Neutrophil Count 3.9 X10^3/uL (2.0-7.7); Basophil# 0.02 X10^3/uL; Basophil% 0.4 % (0-1); Eosinophil# 0.01 X10^3/uL; Eosinophils% 0.2 % (0-5); Hemoglobin 10.7 g/dL (13.0-16.5); Lymphocyte # 1.33 X10^3/ul (4.0); Lymphocyte % 23.3 % (19-41); Mean Corp Hgb Conc 32.4 g/dL (32-36); Mean Corpuscular Hgb 24.4 pg (27.0-32.0); Mean Corpuscular Volume 75.2 fL (80-94); Mean Platelet Vol. 10.5 fl (6.2-12.0); Monocyte# 0.41 X10^3/uL; Monocyte% 7.2 % (0-10); NRBC Flagged by Analyzer 0 % (0-5); Neutrophil # 3.89 X10^3/uL (2.7-7.7); Neutrophil % 68.2 % (47-70); Platelet Count 228 K/mm3 (150-450); RBC Distribution Width CV 15.5 % (11.6-14.6); RBC Distribution Width SD 42.1 fl (35.1-43.9); Red Blood Count 4.39 M/mm3 (4.6-6.2); White Blood Count 5.7 K/mm3 (4.4-11.0)
[2020-04-24 06:36] LABS: ALB/GLOB Ratio 0.7 RATIO (0.9-2.4); AST(SGOT) 10 U/L (15-37); Alanine Aminotransfer ALT/SGPT 15 U/L (16-61); Albumin, Serum 2.4 g/dL (3.2-5.0); Alkaline Phosphatase 84 U/L (45-117); Anion Gap 7 (5-15); BUN 9 mg/dL (7-18); BUN/Creat Ratio 9.9 RATIO (10-20); Calcium,Total 8.2 mg/dL (8.5-10.1); Chloride 115 mmol/L (98-107); Creatinine, Serum 0.91 mg/dL (0.70-1.30); EST Glomerular Filtration Rate 94 mL/min (>60); Est Glom Filt Rate - Afr Amer 113 mL/min (>60); Estimated Creatinine Clearance 112.91 ml/min; Globulin 3.6 g/dL (2.2-4.2); Glucose 95 mg/dL (74-106); Potassium 2.8 mmol/L (3.5-5.1); Sodium Level 144 mmol/L (136-145)
[2020-04-24] MEDS: Potassium Chloride 10mEq/100mL 10 MEQ/100 ML IV.SOLN. 100 MEQ IV BOLUS ×4 (08:28→14:29)
[2020-04-24] MEDS: Loperamide 2 MG Capsule PO (09:48)
[2020-04-24] MEDS: Topiramate 100 MG Tablet PO ×2 (09:59→20:53)
--- NOTE | 2020-04-24 11:54 | PN_ITS ---
Patient Problems: Active and Suspected Problems SILVINA (acute kidney injury) (Acute) Hypokalemia due to excessive gastrointestinal loss of potassium (Acute) Dehydration (Acute) Severe sepsis (Acute) Lower respiratory tract infection (Acute) Salmonella bacteremia (Acute) Subjective: Patient seen and examined. He still complains of feeling weak and comes only tolerate liquids. He still having diarrhea though he says the frequency is decreasing. He went about 5 times since yesterday. Review of systems otherwise negative. He has remained hemodynamically stable. Potassium still remains low at 2.8 today. Vitals/I&O's: Vital Signs Temp Pulse Resp BP Pulse Ox 97.8 F 98 18 107/62 99 04/24/20 08:35 04/24/20 10:00 04/24/20 08:35 04/24/20 08:35 04/24/20 08:35 Oxygen Delivery Method Room Air Weight: 250 lb 3.594 oz Body Mass Index (BMI) 32.1 Intake and Output for Last 24 Hours 04/22/20 04/23/20 04/24/20 23:59 23:59 23:59 Intake Total 6101.67 / 6101.67 6160.00 / 6580.00 3546.67 / 3546.67 Output Total 2325 / 2325 2330 / 2330 1650 / 1650 Balance 3776.67 / 3776.67 3830.00 / 4250.00 1896.67 / 1896.67 General: Alert, Oriented x3, Cooperative HEENT: Atraumatic, PERRLA, EOMI, Normocephalic Oral: Dry Mucosa Neck: Supple, No JVD, Negative Carotid Bruits Lungs: Clear to auscultation, Normal air movement, No rhonchi, No wheeze Cardiovascular: Regular rate, Regular Rhythm, Normal S1, Normal S2, No murmurs Abdomen: Bowel Sounds Present, Soft, - - mild generalised tenderness, no guarding or rebound tenderness. Extremities: No edema, Capillary Refill Less than 3 Seconds Skin: No rashes, No breakdown Musculoskeletal: No Tenderness to Palpation of Joints or Extremities Lymphatic: No Cervical, Supraclavicular, or Inguinal Adenopathy Neurological: Cranial nerves II-XII grossly intact, Neuro grossly intact, Motor Exam 5/5 strength throughout Psych/Mental Status: Normal Affect, Appropriate, Alert and oriented to time, place, person, mood and affect Microbiology Past 72 Hours 04/21/20 05:35 Blood Culture (Wb) - Right Hand Blood Culture - Preliminary Gram negative fili 04/21/20 05:35 Blood Culture (Wb) - Anticubital Right Blood Culture - Preliminary Presumptive Salmonella Group 04/21/20 08:15 Stool Enteric Bacteriology - Final Salmonella Sp. 04/21/20 08:15 Stool C. difficile DNA Amplification - Final Laboratory Results 04/23/20 13:43: APTT 43.5 H 04/23/20 21:06: APTT 31.5 04/24/20 05:54: WBC 5.7, RBC 4.39 L, Hgb 10.7 L, Hct 33.0 L, MCV 75.2 L, MCH 24.4 L, MCHC 32.4, RDW Std Deviation 42.1, RDW Coeff of Angella 15.5 H, Plt Count 228, MPV 10.5, Immature Gran % (Auto) 0.700, Neut % (Auto) 68.2, Lymph % (Auto) 23.3, [place] % (Auto) 7.2, Eos % (Auto) 0.2, Baso % (Auto) 0.4, Absolute Neuts (auto) 3.9, Absolute Lymphs (auto) 1.33, Nucleated RBC % 0 04/24/20 05:54: Sodium 144, Potassium 2.8 L, Chloride 115 H, Carbon Dioxide 22.0, Anion Gap 7, BUN 9, Creatinine 0.91, Estim Creat Clear Calc 112.91, Est GFR (MDRD) Af Amer 113, Est GFR (MDRD) Non-Af 94, BUN/Creatinine Ratio 9.9 L, Glucose 95, Calcium 8.2 L, Magnesium 2.0, Total Bilirubin 0.40, AST 10 L, ALT 15 L, Alkaline Phosphatase 84, Total Protein 6.0 L, Albumin 2.4 L, Globulin 3.6, Albumin/Globulin Ratio 0.7 L Diagnostic Data Chest X-Ray 04/21/20 06:02 IMPRESSION: Degenerative changes, as described above. No demonstrated acute cardiopulmonary process. Electronically Signed: Karen Lopez, at 6:54 EDT Tel , Service support , Chest CTA 04/23/20 13:55 IMPRESSION: Normal CTA chest examination, without a demonstrated pulmonary embolism or arterial dissection. Electronically Signed: Nic Li MD at 15:47 EDT Tel , Service support , Current Medications Acetaminophen (Acetaminophen 325 Mg Tablet) 650 mg PO Q6H PRN PRN PRN Reason: Pain Score 1-10/Temp > 100.7 F Last Admin: 04/23/20 20:20 Dose: 650 mg Documented by: Al Hydroxide/Mg Hydroxide (Mag Hydrox/Al Hydrox/Simeth 30 Ml Udc) 30 ml PO Q6H PRN PRN PRN Reason: Gastric Burning Albuterol Sulfate (Albuterol 2.5 Mg/3 Ml Vial.Neb.) 2.5 mg INHALATION Q2H PRN PRN PRN Reason: Shortness of Breath/Wheezing Buspirone HCl (Buspirone 5 Mg Tablet) 10 mg PO TID [facility] Last Admin: 04/24/20 05:35 Dose: Not Given Documented by: Gabapentin (Gabapentin 300 Mg Capsule) 300 mg PO TID [facility] Last Admin: 04/24/20 05:35 Dose: 300 mg Documented by: Heparin Sodium (Porcine) (Heparin Injection (Vial) 5,000 Unit/Ml Vial) 0 unit IV UD PRN; Protocol PRN Reason: dose adjustment Lactated Ringer's () 1,000 mls @ 200 mls/hr IV .Q5H [facility] Last Admin: 04/24/20 08:28 Dose: 200 mls/hr Documented by: Ceftriaxone Sodium 2 gm/ (Sodium Chloride) 50 mls @ 100 mls/hr IV Q24 [facility] Last Infusion: 04/24/20 10:19 Dose: Infused Documented by: Sodium Chloride () 250 mls @ 15 mls/hr IV .[id number] PRN PRN Reason: Saline Flush Sodium Chloride () 250 mls @ 15 mls/hr IV .[id number] PRN PRN Reason: Additional IVPB Infusion Potassium Chloride () 10 meq in 100 mls @ 100 mls/hr IV BOLUS Q1H [facility] Stop: 04/24/20 11:59 Last Infusion: 04/24/20 10:46 Dose: Infused Documented by: Lidocaine (Lidocaine 5% Patch) 1 patch TOPICAL DAILY PRN PRN Reason: Pain Score 1-10 Loperamide HCl (Loperamide 2 Mg Capsule) 2 mg PO Q4H PRN PRN PRN Reason: Diarrhea Last Admin: 04/24/20 09:48 Dose: 2 mg Documented by: Melatonin (Melatonin 3 Mg Tablet) 3 mg PO QHS PRN PRN PRN Reason: INSOMNIA Morphine Sulfate (Morphine 2 Mg/Ml Syringe) 2 mg IV Q3H PRN PRN PRN Reason: Pain Score 6-10 Last Admin: 04/24/20 05:40 Dose: 2 mg Documented by: Nicotine (Nicotine 21 Mg Patch) 21 mg TRANSDERM. DAILY [facility] Last Admin: 04/24/20 09:47 Dose: 21 mg Documented by: Nutritional Formula (Lactose Free) (Ensure Clear 120 Ml Liquid) 120 ml PO 4X/DAY [facility] Last Admin: 04/24/20 09:47 Dose: Not Given Documented by: Ondansetron HCl (Ondansetron 4 Mg/2 Ml Vial) 4 mg IV Q8H PRN PRN PRN Reason: NAUSEA/VOMITING Senna/Docusate Sodium (Senna/Docusate Sodium 1 Tablet) 2 tablet PO BID PRN PRN PRN Reason: Constipation Sodium Chloride (0.9% Saline Lock 10 Ml Syringe) 10 - 40 ml IV UD PRN PRN Reason: SALINE FLUSH Last Admin: 04/24/20 05:40 Dose: 10 ml Documented by: Temazepam (Temazepam 15 Mg Capsule) 30 mg PO QHS [facility] Last Admin: 04/23/20 21:51 Dose: 30 mg Documented by: Throat Lozenges (Benzocaine/Menthol 1 Lozenge) 1 lozenge MUCOUS MEM Q2H PRN PRN PRN Reason: SORE THROAT Topiramate (Topiramate 100 Mg Tablet) 100 mg PO BID [facility] Last Admin: 04/24/20 09:59 Dose: 100 mg Documented by: STROKE Vital Signs/Narrative: Vital Signs Temp Pulse Resp BP Pulse Ox 04/24/20 10:00 98 04/24/20 08:35 97.8 F 85 18 107/62 99 Medical Necessity - Tobacco Use Smoking Status: Never smoker Assessment/Plan All Active Problems SILVINA (acute kidney injury) (Acute) Hypokalemia due to excessive gastrointestinal loss of potassium (Acute) Dehydration (Acute) Severe sepsis (Acute) Lower respiratory tract infection (Acute) Salmonella bacteremia (Acute) # Severe sepsiS due to Salmonella bacteremia * COVID testing x 2 were negative * blood cultures and stool grew Salmonella * repeat Blood cultures pending * on IV ceftriaxone * ID on board, recommend patient being discharged home on PO ciprofloxacin 500mg bid x 10 days when diarrhea improves. #Diarrhea due to Salmonella infection * Patient still complaining of profuse diarrhea * Continue hydration with IV fluids. * ID on board. * encourage oral intake. * #Non anion gap metabolic acidosis * resolved * #Hypokalemia: Potassium is still 2.8. Replace and monitor. #SILVINA: Resolved. #Elevated D-dimer * D-dimer was 8.33 on admission. * CTA of chest done was negative for PE. Heparin drip he was empirically started on discontinued. DVT prophylaxis;lovenox Inpatient E&M: 06140 [facility] Hosp L2
[2020-04-24] MEDS: Ensure Clear 120 ML Liquid PO ×3 (12:58→20:49)
[2020-04-24] MEDS: busPIRone 5 MG Tablet 10 MG PO (12:58)
--- NOTE | 2020-04-24 15:22 | CHAPLAIN ---
Type of Pastoral Visit _x__ Initial Visit ___ Follow-up Visit ___ On-call Visit ___ General Patient Visit ___ Spiritual Assessment ___ Family Conference ___ Bereavement ___ Rapid Response ___ Code Blue ___ Other (describe below) Pastoral Care Referral From _x__ Patient ___ Family ___ Nurse ___ Physician ___ Fire Manager ___ Cnc Service Engineer ___ Other (describe below) Sacrament/Intervention _x__ Active listening ___ Anointing ___ Uatsdin ___ Bereavement ___ Communion _x__ Tiffanie exploration ___ _x__ Life review _x__ Prayer ___ Reconciliation ___ Sacrament of Sick _x__ Supportive presence ___ Wedding ___ Other (describe below) Pastoral Comments
[2020-04-24] MEDS: Ketorolac 30 MG/ML Syringe IV (18:26)
[2020-04-24] MEDS: Acetaminophen 325 MG Tablet 650 MG PO (18:26)
[2020-04-24] MEDS: Temazepam 15 MG Capsule 30 MG PO (20:49)
[2020-04-25 02:00] VITALS: BP 115/71; PULSE 66; RESP 17; TEMP 36.5; O2SAT 100
[2020-04-25 03:00] VITALS: PULSE 66
[2020-04-25] MEDS: Lactated Ringers 1,000 ML 200 ML IV ×2 (05:02→17:28)
[2020-04-25] MEDS: Gabapentin 300 MG Capsule PO ×3 (05:05→21:29)
[2020-04-25] MEDS: Morphine 2 MG/ML Syringe IV (05:17)
[2020-04-25 06:47] LABS: Absolute Lymphocyte Count 1.65 X10^3/uL (0.83-4.51); Absolute Neutrophil Count 2.5 X10^3/uL (2.0-7.7); Basophil# 0.02 X10^3/uL; Basophil% 0.4 % (0-1); Eosinophil# 0.05 X10^3/uL; Hematocrit 31.7 % (40-54); Hemoglobin 10.5 g/dL (13.0-16.5); Lymphocyte # 1.65 X10^3/ul (4.0); Lymphocyte % 34.4 % (19-41); Mean Corp Hgb Conc 33.1 g/dL (32-36); Mean Corpuscular Hgb 24.8 pg (27.0-32.0); Mean Corpuscular Volume 74.9 fL (80-94); Mean Platelet Vol. 9.5 fl (6.2-12.0); Monocyte# 0.57 X10^3/uL; Monocyte% 11.9 % (0-10); NRBC Flagged by Analyzer 0 % (0-5); Neutrophil # 2.49 X10^3/uL (2.7-7.7); Neutrophil % 51.9 % (47-70); POSITIVE MORPHOLOGY YES; Platelet Count 227 K/mm3 (150-450); RBC Distribution Width CV 15.8 % (11.6-14.6); RBC Distribution Width SD 42.7 fl (35.1-43.9); Red Blood Count 4.23 M/mm3 (4.6-6.2); White Blood Count 4.8 K/mm3 (4.4-11.0)
[2020-04-25 06:59] LABS: Differential Indicated SCAN CRITERIA MET
[2020-04-25 07:07] LABS: Differential Comment SCANNED; Reactive Lymphocyte RARE
[2020-04-25 07:16] LABS: ALB/GLOB Ratio 0.7 RATIO (0.9-2.4); AST(SGOT) 15 U/L (15-37); Alanine Aminotransfer ALT/SGPT 18 U/L (16-61); Albumin, Serum 2.3 g/dL (3.2-5.0); Alkaline Phosphatase 81 U/L (45-117); Anion Gap 4 (5-15); BUN 6 mg/dL (7-18); BUN/Creat Ratio 7.3 RATIO (10-20); Calcium,Total 8.2 mg/dL (8.5-10.1); Chloride 118 mmol/L (98-107); Creatinine, Serum 0.82 mg/dL (0.70-1.30); EST Glomerular Filtration Rate 105 mL/min (>60); Est Glom Filt Rate - Afr Amer 128 mL/min (>60); Globulin 3.4 g/dL (2.2-4.2); Glucose 87 mg/dL (74-106); Protein, Total 5.7 g/dL (6.4-8.2); Sodium Level 146 mmol/L (136-145)
[2020-04-25 08:00] VITALS: BP 114/71; PULSE 80; RESP 18; TEMP 36.6; O2SAT 100
[2020-04-25] MEDS: Ensure Clear 120 ML Liquid PO ×4 (08:07→21:32)
[2020-04-25] MEDS: Topiramate 100 MG Tablet PO ×2 (08:08→21:30)
[2020-04-25 08:30] VITALS: PULSE 86
--- NOTE | 2020-04-25 09:09 | DCINST_ITS ---
- Discharge Diagnoses Current Active Problems: Current Active and Chronic Problems PTSD (post-traumatic stress disorder) (Chronic) SILVINA (acute kidney injury) (Acute) Hypokalemia due to excessive gastrointestinal loss of potassium (Acute) Dehydration (Acute) Severe sepsis (Acute) Lower respiratory tract infection (Acute) Salmonella bacteremia (Acute) You will use the following diet at home:: No restrictions Your food should be the consistency of: Regular Your liquids should be the consistency of: Regular/Thin Discharge Activity: Return to Normal Activity Weight Bearing Status: Weight bearing as tolerated Call your doctor if you observe: Fever of 101 or Higher, Shortness of breath, Dizziness, - - persistent diarrhea Instructions: Acute Kidney Failure, Dehydration, Salmonella Infection (Salmonellosis), ED Food Poison Or Gastroenteritis Additional Instructions: follow with PCP for BMP in 2-3 days to follow serum potassium level Allergies/Adverse Reactions: Allergies No Known Allergies Allergy (Verified 04/21/20 05:30) Medications to take at Discharge Gabapentin 300 mg PO TID 04/21/20 Lidocaine 1 ea TP DAILY PRN 04/21/20 Temazepam 30 mg PO QHS 04/21/20 Testosterone 30 mg TD DAILY 04/21/20 Topiramate 100 mg PO BID 04/21/20 Vortioxetine Hydrobromide [Trintellix] 10 mg PO DAILY 04/21/20 busPIRone [Buspar] 10 mg PO TID 04/21/20 Ciprofloxacin HCl 500 mg PO BID 10 Days #20 tab 04/25/20 Potassium Chloride [K-Dur] 40 meq PO DAILY #20 tab 04/25/20 The following prescriptions were given: Ciprofloxacin HCl 500 mg PO BID 10 Days #20 tab Transmission Status: Pending to [id number] Potassium Chloride [K-Dur] 40 meq PO DAILY #20 tab Transmission Status: Pending to [id number] Primary Care Physician: [facility] Doctor,Out of [NON-STAFF] - Please follow up with your Primary Care Physician in: 1-2 weeks Test Results: Test results from this visit will be discussed in further detail at your follow- up appointment, if applicable. Proposed Discharge Date: 04/25/20
--- NOTE | 2020-04-25 11:49 | NURSING ---
@ 0930 this nurse spoke w/ pt about obtaining ride home, he is concerned about leaving, feels like he is still having diarrhea this am (although less diarhea and more urine output)-told him it was not advisable for tg to drive home. he says that his headache thru night was greatly helped w/ morphine-this nurse had asked [facility] pt advocate to speak w/ pt and pt is on phone currently w/ kameron-dr dow notified of pt/ upset and want to speak w/ kameron and dr dow @ 1030, pt is dressed and sleeping in bed @ 1130, pt is dressed and sleeping in bed call light in reach, water pitcher in reach, resp even and non labored
--- NOTE | 2020-04-25 12:36 | NURSING ---
spoke w/[facility]ail [facility] @ 1100 [facility]
--- NOTE | 2020-04-25 12:39 | PHA.DC.MR ---
Pharmacy Service has performed discharge medication reconciliation for this patient. The patient's discharge medication list was reviewed for discrepancies and discrepancies were resolved. Home Medications Gabapentin 300 mg PO TID 04/21/20 Lidocaine 1 ea TP DAILY PRN 04/21/20 Temazepam 30 mg PO QHS 04/21/20 Testosterone 30 mg TD DAILY 04/21/20 Topiramate 100 mg PO BID 04/21/20 Vortioxetine Hydrobromide [Trintellix] 10 mg PO DAILY 04/21/20 busPIRone [Buspar] 10 mg PO TID 04/21/20 Ciprofloxacin HCl 500 mg PO BID 10 Days #20 tab 04/25/20 Potassium Chloride [K-Dur] 40 meq PO DAILY #20 tab 04/25/20
[2020-04-25] MEDS: busPIRone 5 MG Tablet 10 MG PO (13:51)
[2020-04-25] MEDS: Acetaminophen 325 MG Tablet 650 MG PO ×2 (13:52→21:29)
[2020-04-25] MEDS: Ketorolac 30 MG/ML Syringe IV ×2 (13:52→20:22)
[2020-04-25] MEDS: proMETHazine 25 MG/ML Syringe 12.5 MG IM (14:44)
--- NOTE | 2020-04-25 15:09 | PN_ITS ---
Patient Problems: Active and Suspected Problems SILVINA (acute kidney injury) (Acute) Hypokalemia due to excessive gastrointestinal loss of potassium (Acute) Dehydration (Acute) Severe sepsis (Acute) Lower respiratory tract infection (Acute) Salmonella bacteremia (Acute) Subjective: Patient was seen and examined this morning. His diarrhea was improving though he had had about 4-5 episodes overnight. He has been able to eat breakfast though he states he felt like it all came out. Potassium was 3 this morning and this was replaced. Review of symptoms otherwise negative. Plan was to discharge patient home today as per discussion with ID on p.o. ciprofloxacin 500 mg twice daily. Patient was initially receptive to this. However patient's called patient advocate and stated that she did not want patient discharged and wanted to speak to the hospitalist when she arrived. Hospitalist informed patient's advocate to let her know when patient's arrived. However, upon patient's arriving, she had the patient refused to speak to hospitalist and opted to the hospitalist and hold for another doctor. Per discussion with nurse, stated that she felt patient was being discharged because he had been asking for morphine. They also said he did not think that is pulseless was spending enough time with him as hospitalist was spending enough time in the room with the patient, since she spent 4-5 minutes daily with the patient reportedly. Hospitalist offered to go up and talk to patient and his to ad dress their concerns. However patient and his refused to meet with hospitalist. Patient handed over to Dr Faith. Vitals/I&O's: Vital Signs Temp Pulse Resp BP Pulse Ox 97.8 F 86 18 114/71 100 04/25/20 08:00 04/25/20 08:30 04/25/20 08:00 04/25/20 08:00 04/25/20 08:00 Oxygen Delivery Method Room Air Weight: 249 lb 12.8 oz Body Mass Index (BMI) 32.1 Intake and Output for Last 24 Hours 04/23/20 04/24/20 04/25/20 23:59 23:59 23:59 Intake Total 6160.00 / 6580.00 7526.67 / 7526.67 2700 / 2700 Output Total 2330 / 2330 2650 / 2650 1950 / 1950 Balance 3830.00 / 4250.00 4876.67 / 4876.67 750 / 750 General: Alert, Oriented x3, Cooperative HEENT: Atraumatic, PERRLA, EOMI, Normocephalic Oral: Dry Mucosa Neck: Supple, No JVD, Negative Carotid Bruits Lungs: Clear to auscultation, Normal air movement, No rhonchi, No wheeze Cardiovascular: Regular rate, Regular Rhythm, Normal S1, Normal S2, No murmurs Abdomen: Bowel Sounds Present, Soft, nontender, no organomegaly Extremities: No edema, Capillary Refill Less than 3 Seconds Skin: No rashes, No breakdown Musculoskeletal: No Tenderness to Palpation of Joints or Extremities Lymphatic: No Cervical, Supraclavicular, or Inguinal Adenopathy Neurological: Cranial nerves II-XII grossly intact, Neuro grossly intact, Motor Exam 5/5 strength throughout Psych/Mental Status: Normal Affect, Appropriate, Alert and oriented to time, place, person, mood and affect Microbiology Past 72 Hours 04/23/20 06:30 Blood Culture (Wb) - Arm Left Blood Culture - Preliminary No growth in 48 hours. 04/21/20 05:35 Blood Culture (Wb) - Right Hand Blood Culture - Preliminary Gram negative fili 04/21/20 05:35 Blood Culture (Wb) - Anticubital Right Blood Culture - Preliminary Presumptive Salmonella Group Laboratory Results 04/25/20 06:40: WBC 4.8, RBC 4.23 L, Hgb 10.5 L, Hct 31.7 L, MCV 74.9 L, MCH 24.8 L, MCHC 33.1, RDW Std Deviation 42.7, RDW Coeff of Angella 15.8 H, Plt Count 227, MPV 9.5, Immature Gran % (Auto) 0.400, Neut % (Auto) 51.9, Lymph % (Auto) 34.4, [place] % (Auto) 11.9 H, Eos % (Auto) 1.0, Baso % (Auto) 0.4, Absolute Neuts (auto) 2.5, Absolute Lymphs (auto) 1.65, Nucleated RBC % 0, Differential Comment SCANNED, Reactive Lymphocytes RARE 04/25/20 06:40: Sodium 146 H, Potassium 3.0 L, Chloride 118 H, Carbon Dioxide 24.0, Anion Gap 4 L, BUN 6 L, Creatinine 0.82, Estim Creat Clear Calc 125.30, Est GFR (MDRD) Af Amer 128, Est GFR (MDRD) Non-Af 105, BUN/Creatinine Ratio 7.3 L, Glucose 87, Calcium 8.2 L, Total Bilirubin 0.40, AST 15, ALT 18, Alkaline Phosphatase 81, Total Protein 5.7 L, Albumin 2.3 L, Globulin 3.4, Albumin/Globulin Ratio 0.7 L Current Medications Acetaminophen (Acetaminophen 325 Mg Tablet) 650 mg PO Q6H PRN PRN PRN Reason: Pain Score 1-10/Temp > 100.7 F Last Admin: 04/25/20 13:52 Dose: 650 mg Documented by: Al Hydroxide/Mg Hydroxide (Mag Hydrox/Al Hydrox/Simeth 30 Ml Udc) 30 ml PO Q6H PRN PRN PRN Reason: Gastric Burning Albuterol Sulfate (Albuterol 2.5 Mg/3 Ml Vial.Neb.) 2.5 mg INHALATION Q2H PRN PRN PRN Reason: Shortness of Breath/Wheezing Buspirone HCl (Buspirone 5 Mg Tablet) 10 mg PO TID [facility] Last Admin: 04/25/20 13:51 Dose: 10 mg Documented by: Enoxaparin Sodium (Enoxaparin 40 Mg/0.4 Ml Syringe) 40 mg SC DAILY@0600 [facility] Last Admin: 04/25/20 05:05 Dose: Not Given Documented by: Gabapentin (Gabapentin 300 Mg Capsule) 300 mg PO TID [facility] Last Admin: 04/25/20 13:51 Dose: 300 mg Documented by: Ceftriaxone Sodium 2 gm/ (Sodium Chloride) 50 mls @ 100 mls/hr IV Q24 [facility] Last Admin: 04/25/20 11:47 Dose: Not Given Documented by: Sodium Chloride () 250 mls @ 15 mls/hr IV .[id number] PRN PRN Reason: Saline Flush Sodium Chloride () 250 mls @ 15 mls/hr IV .[id number] PRN PRN Reason: Additional IVPB Infusion Potassium Chloride 40 meq/ (Sodium Chloride) 1,020 mls @ 150 mls/hr IV .[id number] [facility] Ketorolac Tromethamine (Ketorolac 30 Mg/Ml Syringe) 30 mg IV Q6H PRN PRN PRN Reason: HEADACHE Stop: 04/29/20 13:52 Last Admin: 04/25/20 13:52 Dose: 30 mg Documented by: Lidocaine (Lidocaine 5% Patch) 1 patch TOPICAL DAILY PRN PRN Reason: Pain Score 1-10 Loperamide HCl (Loperamide 2 Mg Capsule) 2 mg PO Q4H PRN PRN PRN Reason: Diarrhea Last Admin: 04/24/20 09:48 Dose: 2 mg Documented by: Melatonin (Melatonin 3 Mg Tablet) 3 mg PO QHS PRN PRN PRN Reason: INSOMNIA Nicotine (Nicotine 21 Mg Patch) 21 mg TRANSDERM. DAILY [facility] Last Admin: 04/25/20 08:08 Dose: 21 mg Documented by: Non-Formulary Medication (Testosterone) 30 mg TD DAILY [facility] Nutritional Formula (Lactose Free) (Ensure Clear 120 Ml Liquid) 120 ml PO 4X/DAY [facility] Last Admin: 04/25/20 13:51 Dose: 120 ml Documented by: Ondansetron HCl (Ondansetron 4 Mg/2 Ml Vial) 4 mg IV Q8H PRN PRN PRN Reason: NAUSEA/VOMITING Senna/Docusate Sodium (Senna/Docusate Sodium 1 Tablet) 2 tablet PO BID PRN PRN PRN Reason: Constipation Sodium Chloride (0.9% Saline Lock 10 Ml Syringe) 10 - 40 ml IV UD PRN PRN Reason: SALINE FLUSH Last Admin: 04/24/20 05:40 Dose: 10 ml Documented by: Temazepam (Temazepam 15 Mg Capsule) 30 mg PO QHS [facility] Last Admin: 04/24/20 20:49 Dose: 30 mg Documented by: Throat Lozenges (Benzocaine/Menthol 1 Lozenge) 1 lozenge MUCOUS MEM Q2H PRN PRN PRN Reason: SORE THROAT Topiramate (Topiramate 100 Mg Tablet) 100 mg PO BID [facility] Last Admin: 04/25/20 08:08 Dose: 100 mg Documented by: Medical Necessity - Tobacco Use Smoking Status: Never smoker Assessment/Plan All Active Problems SILVINA (acute kidney injury) (Acute) Hypokalemia due to excessive gastrointestinal loss of potassium (Acute) Dehydration (Acute) Severe sepsis (Acute) Lower respiratory tract infection (Acute) Salmonella bacteremia (Acute) # Severe sepsiS due to Salmonella bacteremia * COVID testing x 2 were negative * blood cultures and stool grew Salmonella * repeat Blood cultures showed no growth after 48 hours * on IV ceftriaxone * ID on board, recommend patient being discharged home on PO ciprofloxacin 500mg bid x 10 days when diarrhea improves. #Diarrhea due to Salmonella infection * diarrhea is improving. on oral diet; advance as tolerated * ID on board. * encourage oral intake. * #Non anion gap metabolic acidosis * resolved * #Hypokalemia: Potassium is 3 today. Replace and monitor. #SILVINA: Resolved. #Elevated D-dimer * D-dimer was 8.33 on admission. * CTA of chest done was negative for PE. Heparin drip he was empirically started on discontinued. DVT prophylaxis;lovenox Disposition: Patient and refused discharge today and fired hospitalist. Patient's care transitioned to Dr Faith. Inpatient E&M: [id number] Subs Hosp L2
[2020-04-25 16:00] VITALS: BP 137/81; PULSE 82; RESP 18; TEMP 36.6; O2SAT 100
[2020-04-25] MEDS: Potassium Chloride 40 MEQ in 0.9% Normal Saline 1,000 ML 150 MEQ IV (17:42)
[2020-04-25 21:30] VITALS: BP 124/87; PULSE 62; RESP 16; TEMP 36.8; O2SAT 100
[2020-04-25] MEDS: Temazepam 15 MG Capsule 30 MG PO (21:30)
[2020-04-26] MEDS: Potassium Chloride 40 MEQ in 0.9% Normal Saline 1,000 ML 150 MEQ IV ×2 (00:36→06:57)
[2020-04-26 03:15] VITALS: BP 123/76; PULSE 63; RESP 18; TEMP 36.8; O2SAT 98
[2020-04-26] MEDS: Gabapentin 300 MG Capsule PO ×3 (05:58→21:12)
[2020-04-26] MEDS: Enoxaparin 40 MG/0.4 ML Syringe SC (05:58)
[2020-04-26 07:13] LABS: Hematocrit 30.6 % (40-54); Hemoglobin 10.1 g/dL (13.0-16.5); Mean Corpuscular Hgb 24.8 pg (27.0-32.0); Mean Platelet Vol. 10.2 fl (6.2-12.0); Platelet Count 267 K/mm3 (150-450); RBC Distribution Width CV 15.9 % (11.6-14.6); RBC Distribution Width SD 43.2 fl (35.1-43.9); Red Blood Count 4.08 M/mm3 (4.6-6.2); White Blood Count 6.3 K/mm3 (4.4-11.0)
[2020-04-26 07:35] LABS: ALB/GLOB Ratio 0.7 RATIO (0.9-2.4); AST(SGOT) 26 U/L (15-37); Alanine Aminotransfer ALT/SGPT 26 U/L (16-61); Albumin, Serum 2.2 g/dL (3.2-5.0); Alkaline Phosphatase 84 U/L (45-117); Anion Gap 6 (5-15); BUN 6 mg/dL (7-18); BUN/Creat Ratio 8.6 RATIO (10-20); Chloride 120 mmol/L (98-107); EST Glomerular Filtration Rate 128 mL/min (>60); Est Glom Filt Rate - Afr Amer 155 mL/min (>60); Estimated Creatinine Clearance 146.79 ml/min; Globulin 3.2 g/dL (2.2-4.2); Glucose 93 mg/dL (74-106); Magnesium 1.8 mg/dL (1.6-2.6); Phosphorus 2.7 mg/dL (2.5-4.9); Potassium 3.4 mmol/L (3.5-5.1); Protein, Total 5.4 g/dL (6.4-8.2); Sodium Level 147 mmol/L (136-145)
--- NOTE | 2020-04-26 07:49 | PCM.PN.HOSP ---
Patient Problems: Active and Suspected Problems SILVINA (acute kidney injury) (Acute) Hypokalemia due to excessive gastrointestinal loss of potassium (Acute) Dehydration (Acute) Severe sepsis (Acute) Lower respiratory tract infection (Acute) Salmonella bacteremia (Acute) Reason for Visit: Acute Salmonella infection with bacteremia Hypokalemia Subjective: Patient is a 49-year-old gentleman admitted with diarrhea. Stool and blood cultures both came back positive for Salmonella has since been managed with Rocephin Objective: GENERAL: does not appear to be in any distress HEENT: Atraumatic; EYES; Anicteric, Normal Conjunctiva NECK; supple, normal thyroid, RESPIRATORY: Diminished to auscultation CARDIOVASCULAR: Regular S1 S2, GI: soft, normoactive bowel sounds, : No Renal angle tenderness; EXTREMITIES: No edema, no clubbing, MUSCULOSKELETAL: no muscle waisting NEURO: Awake; no lateralizing signs. SKIN: No Rash PSYCH; Flat affect Vitals/I&O's: Vital Signs Temp Pulse Resp BP Pulse Ox 98.2 F 63 18 123/76 H 98 04/26/20 03:15 04/26/20 03:15 04/26/20 03:15 04/26/20 03:15 04/26/20 03:15 Oxygen Delivery Method Room Air Weight: 116.346 kg Body Mass Index (BMI) 32.1 Intake and Output for Last 24 Hours 04/24/20 04/25/20 04/26/20 23:59 23:59 23:59 Intake Total 7526.67 / 7526.67 3590 / 3590 2092.5 / 2092.5 Output Total 2650 / 2650 2250 / 2250 350 / 350 Balance 4876.67 / 4876.67 1340 / 1340 1742.5 / 1742.5 Microbiology Past 72 Hours 04/23/20 06:30 Blood Culture (Wb) - Arm Left Blood Culture - Preliminary No growth in 48 hours. 04/21/20 05:35 Blood Culture (Wb) - Right Hand Blood Culture - Preliminary Gram negative fili 04/21/20 05:35 Blood Culture (Wb) - Anticubital Right Blood Culture - Preliminary Presumptive Salmonella Group Laboratory Results 04/26/20 06:55: WBC 6.3, RBC 4.08 L, Hgb 10.1 L, Hct 30.6 L, MCV 75.0 L, MCH 24.8 L, MCHC 33.0, RDW Std Deviation 43.2, RDW Coeff of Angella 15.9 H, Plt Count 267, MPV 10.2 04/26/20 06:55: Sodium 147 H, Potassium 3.4 L, Chloride 120 H, Carbon Dioxide 21.0, Anion Gap 6, BUN 6 L, Creatinine 0.70, Estim Creat Clear Calc 146.79, Est GFR (MDRD) Af Amer 155, Est GFR (MDRD) Non-Af 128, BUN/Creatinine Ratio 8.6 L, Glucose 93, Calcium 8.0 L, Phosphorus 2.7, Magnesium 1.8, Total Bilirubin 0.40, AST 26, ALT 26, Alkaline Phosphatase 84, Total Protein 5.4 L, Albumin 2.2 L, Globulin 3.2, Albumin/Globulin Ratio 0.7 L Current Medications Acetaminophen (Acetaminophen 325 Mg Tablet) 650 mg PO Q6H PRN PRN PRN Reason: Pain Score 1-10/Temp > 100.7 F Last Admin: 04/25/20 21:29 Dose: 650 mg Documented by: Al Hydroxide/Mg Hydroxide (Mag Hydrox/Al Hydrox/Simeth 30 Ml Udc) 30 ml PO Q6H PRN PRN PRN Reason: Gastric Burning Albuterol Sulfate (Albuterol 2.5 Mg/3 Ml Vial.Neb.) 2.5 mg INHALATION Q2H PRN PRN PRN Reason: Shortness of Breath/Wheezing Buspirone HCl (Buspirone 5 Mg Tablet) 10 mg PO TID [facility] Last Admin: 04/26/20 05:59 Dose: Not Given Documented by: Enoxaparin Sodium (Enoxaparin 40 Mg/0.4 Ml Syringe) 40 mg SC DAILY@0600 [facility] Last Admin: 04/26/20 05:58 Dose: 40 mg Documented by: Gabapentin (Gabapentin 300 Mg Capsule) 300 mg PO TID [facility] Last Admin: 04/26/20 05:58 Dose: 300 mg Documented by: Ceftriaxone Sodium 2 gm/ (Sodium Chloride) 50 mls @ 100 mls/hr IV Q24 [facility] Last Infusion: 04/25/20 12:30 Dose: Infused Documented by: Sodium Chloride () 250 mls @ 15 mls/hr IV .[id number] PRN PRN Reason: Saline Flush Sodium Chloride () 250 mls @ 15 mls/hr IV .[id number] PRN PRN Reason: Additional IVPB Infusion Potassium Chloride/Dextrose/Sod Cl (Kcl 20meq In D5.45ns 1000ml) 1,000 mls @ 150 mls/hr IV .Q6H40M [facility] Ketorolac Tromethamine (Ketorolac 30 Mg/Ml Syringe) 30 mg IV Q6H PRN PRN PRN Reason: HEADACHE Stop: 04/29/20 13:52 Last Admin: 04/25/20 20:22 Dose: 30 mg Documented by: Lidocaine (Lidocaine 5% Patch) 1 patch TOPICAL DAILY PRN PRN Reason: Pain Score 1-10 Loperamide HCl (Loperamide 2 Mg Capsule) 2 mg PO Q4H PRN PRN PRN Reason: Diarrhea Last Admin: 04/24/20 09:48 Dose: 2 mg Documented by: Melatonin (Melatonin 3 Mg Tablet) 3 mg PO QHS PRN PRN PRN Reason: INSOMNIA Nicotine (Nicotine 21 Mg Patch) 21 mg TRANSDERM. DAILY [facility] Last Admin: 04/25/20 08:08 Dose: 21 mg Documented by: Non-Formulary Medication (Testosterone) 30 mg TOPICAL DAILY [facility] Nutritional Formula (Lactose Free) (Ensure Clear 120 Ml Liquid) 120 ml PO 4X/DAY [facility] Last Admin: 04/25/20 21:32 Dose: 120 ml Documented by: Ondansetron HCl (Ondansetron 4 Mg/2 Ml Vial) 4 mg IV Q8H PRN PRN PRN Reason: NAUSEA/VOMITING Promethazine HCl (Promethazine 25 Mg/Ml Syringe) 12.5 mg IM Q4H PRN PRN PRN Reason: HEADACHE Senna/Docusate Sodium (Senna/Docusate Sodium 1 Tablet) 2 tablet PO BID PRN PRN PRN Reason: Constipation Sodium Chloride (0.9% Saline Lock 10 Ml Syringe) 10 - 40 ml IV UD PRN PRN Reason: SALINE FLUSH Last Admin: 04/24/20 05:40 Dose: 10 ml Documented by: Temazepam (Temazepam 15 Mg Capsule) 30 mg PO QHS [facility] Last Admin: 04/25/20 21:30 Dose: 30 mg Documented by: Throat Lozenges (Benzocaine/Menthol 1 Lozenge) 1 lozenge MUCOUS MEM Q2H PRN PRN PRN Reason: SORE THROAT Topiramate (Topiramate 100 Mg Tablet) 100 mg PO BID [facility] Last Admin: 04/25/20 21:30 Dose: 100 mg Documented by: Medical Necessity - Tobacco Use Smoking Status: Never smoker Assessment/Plan All Active Problems SILVINA (acute kidney injury) (Acute) Hypokalemia due to excessive gastrointestinal loss of potassium (Acute) Dehydration (Acute) Severe sepsis (Acute) Lower respiratory tract infection (Acute) Salmonella bacteremia (Acute) Patient is a 49-year-old gentleman admitted with diarrhea. Stool and blood cultures both came back positive for Salmonella has since been managed with Rocephin 1. Severe sepsis secondary to Salmonella bacteremia and Salmonella colitis ?Patient has been managed with Rocephin. Seen in consultation by infectious disease plan is for patient to be discharged home on ciprofloxacin once his diarrhea improves 2. Hypokalemia ?Secondary to GI losses corrected per protocol 3. Acute kidney injury ?Managed with IV fluids; resolved 4. History of chronic migraines ?Patient was treated with Phenergan for recurrent symptoms 5. Elevated D-dimer ?CTA was negative for PE. Patient has also been tested 3 times for COVID-19 and has remained negative on all occasions 6. DVT prophylaxis ?Lovenox 7. Obesity with BMI of 32.9 ?Patient has history of previous gastric bypass Clinical Impression(s) from Imaging Studies Chest X-Ray 04/21/20 06:02 IMPRESSION: Degenerative changes, as described above. No demonstrated acute cardiopulmonary process. Electronically Signed: Karen Lopez at 6:54 EDT Tel , Service support , Chest CTA 04/23/20 13:55 IMPRESSION: Normal CTA chest examination, without a demonstrated pulmonary embolism or arterial dissection. Electronically Signed: Nic Li MD at 15:47 EDT Tel , Service support , Inpatient E&M: [id number] [facility] Hosp L2
[2020-04-26 10:09] VITALS: BP 108/70; PULSE 84; RESP 16; TEMP 36.4; O2SAT 93
[2020-04-26] MEDS: Topiramate 100 MG Tablet PO ×2 (10:11→21:12)
[2020-04-26] MEDS: Ensure Clear 120 ML Liquid PO ×4 (10:17→21:22)
[2020-04-26] MEDS: Ketorolac 30 MG/ML Syringe IV ×2 (14:45→21:13)
[2020-04-26 14:50] VITALS: BP 123/88; PULSE 67; RESP 18; TEMP 37; O2SAT 99
[2020-04-26] MEDS: Acetaminophen 325 MG Tablet 650 MG PO (21:12)
[2020-04-26] MEDS: 0.9% Saline Lock 10 ML Syringe IV (21:15)
[2020-04-26] MEDS: Temazepam 15 MG Capsule 30 MG PO (21:15)
[2020-04-26 21:20] VITALS: BP 154/96; PULSE 69; RESP 20; TEMP 36.2; O2SAT 99
[2020-04-26] MEDS: proMETHazine 25 MG/ML Syringe 12.5 MG IM (23:27)
[2020-04-27 00:45] VITALS: BP 127/81; PULSE 63; RESP 18; TEMP 36.6; O2SAT 95
[2020-04-27] MEDS: Gabapentin 300 MG Capsule PO ×3 (06:03→21:19)
[2020-04-27] MEDS: Enoxaparin 40 MG/0.4 ML Syringe SC (06:03)
[2020-04-27 06:04] VITALS: BP 123/78; PULSE 60; RESP 16; TEMP 36.4; O2SAT 100
[2020-04-27 07:26] LABS: Hemoglobin 10.2 g/dL (13.0-16.5); Mean Corp Hgb Conc 31.9 g/dL (32-36); Mean Corpuscular Hgb 24.4 pg (27.0-32.0); Mean Corpuscular Volume 76.6 fL (80-94); Mean Platelet Vol. 9.3 fl (6.2-12.0); Platelet Count 287 K/mm3 (150-450); RBC Distribution Width CV 16.2 % (11.6-14.6); RBC Distribution Width SD 44.4 fl (35.1-43.9); Red Blood Count 4.18 M/mm3 (4.6-6.2); White Blood Count 6.9 K/mm3 (4.4-11.0)
[2020-04-27 08:00] LABS: ALB/GLOB Ratio 0.7 RATIO (0.9-2.4); AST(SGOT) 31 U/L (15-37); Alanine Aminotransfer ALT/SGPT 37 U/L (16-61); Albumin, Serum 2.3 g/dL (3.2-5.0); Alkaline Phosphatase 88 U/L (45-117); Anion Gap 4 (5-15); BUN 4 mg/dL (7-18); BUN/Creat Ratio 5.5 RATIO (10-20); Calcium,Total 7.9 mg/dL (8.5-10.1); Chloride 120 mmol/L (98-107); Creatinine, Serum 0.73 mg/dL (0.70-1.30); EST Glomerular Filtration Rate 120 mL/min (>60); Est Glom Filt Rate - Afr Amer 145 mL/min (>60); Estimated Creatinine Clearance 140.75 ml/min; Globulin 3.2 g/dL (2.2-4.2); Glucose 96 mg/dL (74-106); Magnesium 1.8 mg/dL (1.6-2.6); Potassium 3.4 mmol/L (3.5-5.1); Protein, Total 5.5 g/dL (6.4-8.2); Sodium Level 146 mmol/L (136-145)
[2020-04-27 09:03] VITALS: BP 124/83; PULSE 100; RESP 18; TEMP 36.3; O2SAT 99
[2020-04-27] MEDS: Pantoprazole Sodium 40 MG Tablet PO (09:19)
[2020-04-27] MEDS: Topiramate 100 MG Tablet PO ×2 (09:19→21:20)
[2020-04-27] MEDS: Ensure Clear 120 ML Liquid PO ×4 (09:23→21:20)
--- NOTE | 2020-04-27 10:46 | PCM.PN.HOSP ---
Patient Problems: Active and Suspected Problems SILVINA (acute kidney injury) (Acute) Hypokalemia due to excessive gastrointestinal loss of potassium (Acute) Dehydration (Acute) Severe sepsis (Acute) Lower respiratory tract infection (Acute) Salmonella bacteremia (Acute) Subjective: Patient is a 49-year-old gentleman admitted with diarrhea. Stool and blood cultures both came back positive for Salmonella has since been managed with Rocephin Plan was for patient to have been discharged on 04/25/2020 however discharge was discontinued in view of patient still having loose bowel movement (patient is from [place] and lives in [place]. Patient's preferences is for diarrhea to subside prior to driving patient to the [place]. Objective: GENERAL: does not appear to be in any distress HEENT: Atraumatic; EYES; Anicteric, Normal Conjunctiva NECK; supple, normal thyroid, RESPIRATORY: Diminished to auscultation CARDIOVASCULAR: Regular S1 S2, GI: soft, normoactive bowel sounds, : No Renal angle tenderness; EXTREMITIES: No edema, no clubbing, MUSCULOSKELETAL: no muscle waisting NEURO: Awake; no lateralizing signs. SKIN: No Rash PSYCH; Flat affect Vitals/I&O's: Vital Signs Temp Pulse Resp BP Pulse Ox 97.4 F L 100 18 124/83 H 99 04/27/20 09:03 04/27/20 09:03 04/27/20 09:03 04/27/20 09:03 04/27/20 09:03 Oxygen Delivery Method Room Air Weight: 117.6 kg Body Mass Index (BMI) 32.1 Intake and Output for Last 24 Hours 04/25/20 04/26/20 04/27/20 23:59 23:59 23:59 Intake Total 3590 / 3590 4732.5 / 5192.5 2059 / 2059 Output Total 2250 / 2250 350 / 1750 2644 / 2644 Balance 1340 / 1340 4382.5 / 3442.5 -584 / -584 Microbiology Past 72 Hours 04/21/20 05:35 Blood Culture (Wb) - Anticubital Right Blood Culture - Preliminary Presumptive Salmonella Group 04/21/20 05:35 Blood Culture (Wb) - Right Hand Blood Culture - Final Gram negative fili 04/23/20 06:30 Blood Culture (Wb) - Arm Left Blood Culture - Preliminary No growth in 48 hours. Laboratory Results 04/27/20 07:15: WBC 6.9, RBC 4.18 L, Hgb 10.2 L, Hct 32.0 L, MCV 76.6 L, MCH 24.4 L, MCHC 31.9 L, RDW Std Deviation 44.4 H, RDW Coeff of Angella 16.2 H, Plt Count 287, MPV 9.3 04/27/20 07:15: Sodium 146 H, Potassium 3.4 L, Chloride 120 H, Carbon Dioxide 22.0, Anion Gap 4 L, BUN 4 L, Creatinine 0.73, Estim Creat Clear Calc 140.75, Est GFR (MDRD) Af Amer 145, Est GFR (MDRD) Non-Af 120, BUN/Creatinine Ratio 5.5 L, Glucose 96, Calcium 7.9 L, Phosphorus 2.0 L, Magnesium 1.8, Total Bilirubin 0.30, AST 31, ALT 37, Alkaline Phosphatase 88, Total Protein 5.5 L, Albumin 2.3 L, Globulin 3.2, Albumin/Globulin Ratio 0.7 L Current Medications Acetaminophen (Acetaminophen 325 Mg Tablet) 650 mg PO Q6H PRN PRN PRN Reason: Pain Score 1-10/Temp > 100.7 F Last Admin: 04/26/20 21:12 Dose: 650 mg Documented by: Al Hydroxide/Mg Hydroxide (Mag Hydrox/Al Hydrox/Simeth 30 Ml Udc) 30 ml PO Q6H PRN PRN PRN Reason: Gastric Burning Albuterol Sulfate (Albuterol 2.5 Mg/3 Ml Vial.Neb.) 2.5 mg INHALATION Q2H PRN PRN PRN Reason: Shortness of Breath/Wheezing Buspirone HCl (Buspirone 5 Mg Tablet) 10 mg PO TID [facility] Last Admin: 04/27/20 06:03 Dose: Not Given Documented by: Enoxaparin Sodium (Enoxaparin 40 Mg/0.4 Ml Syringe) 40 mg SC DAILY@0600 [facility] Last Admin: 04/27/20 06:03 Dose: 40 mg Documented by: Gabapentin (Gabapentin 300 Mg Capsule) 300 mg PO TID [facility] Last Admin: 04/27/20 06:03 Dose: 300 mg Documented by: Ceftriaxone Sodium 2 gm/ (Sodium Chloride) 50 mls @ 100 mls/hr IV Q24 [facility] Last Admin: 04/27/20 10:00 Dose: 100 mls/hr Documented by: Sodium Chloride () 250 mls @ 15 mls/hr IV .[id number] PRN PRN Reason: Saline Flush Sodium Chloride () 250 mls @ 15 mls/hr IV .[id number] PRN PRN Reason: Additional IVPB Infusion Potassium Chloride/Dextrose/Sod Cl (Kcl 20meq In D5.45ns 1000ml) 1,000 mls @ 150 mls/hr IV .Q6H40M [facility] Last Admin: 04/27/20 06:03 Dose: 150 mls/hr Documented by: Ketorolac Tromethamine (Ketorolac 30 Mg/Ml Syringe) 30 mg IV Q6H PRN PRN PRN Reason: HEADACHE Stop: 04/29/20 13:52 Last Admin: 04/26/20 21:13 Dose: 30 mg Documented by: Lidocaine (Lidocaine 5% Patch) 1 patch TOPICAL DAILY PRN PRN Reason: Pain Score 1-10 Loperamide HCl (Loperamide 2 Mg Capsule) 2 mg PO Q4H PRN PRN PRN Reason: Diarrhea Last Admin: 04/24/20 09:48 Dose: 2 mg Documented by: Melatonin (Melatonin 3 Mg Tablet) 3 mg PO QHS PRN PRN PRN Reason: INSOMNIA Nicotine (Nicotine 21 Mg Patch) 21 mg TRANSDERM. DAILY [facility] Last Admin: 04/27/20 09:18 Dose: 21 mg Documented by: Non-Formulary Medication (Testosterone) 30 mg TOPICAL DAILY [facility] Last Admin: 04/27/20 09:22 Dose: 30 mg Documented by: Nutritional Formula (Lactose Free) (Ensure Clear 120 Ml Liquid) 120 ml PO 4X/DAY [facility] Last Admin: 04/27/20 09:23 Dose: 120 ml Documented by: Ondansetron HCl (Ondansetron 4 Mg/2 Ml Vial) 4 mg IV Q8H PRN PRN PRN Reason: NAUSEA/VOMITING Pantoprazole Sodium (Pantoprazole Sodium 40 Mg Tablet) 40 mg PO DAILY [facility] Last Admin: 04/27/20 09:19 Dose: 40 mg Documented by: Promethazine HCl (Promethazine 25 Mg/Ml Syringe) 12.5 mg IM Q4H PRN PRN PRN Reason: HEADACHE Last Admin: 04/26/20 23:27 Dose: 12.5 mg Documented by: Senna/Docusate Sodium (Senna/Docusate Sodium 1 Tablet) 2 tablet PO BID PRN PRN PRN Reason: Constipation Sodium Chloride (0.9% Saline Lock 10 Ml Syringe) 10 - 40 ml IV UD PRN PRN Reason: SALINE FLUSH Last Admin: 04/26/20 21:15 Dose: 10 ml Documented by: Temazepam (Temazepam 15 Mg Capsule) 30 mg PO QHS [facility] Last Admin: 04/26/20 21:15 Dose: 30 mg Documented by: Throat Lozenges (Benzocaine/Menthol 1 Lozenge) 1 lozenge MUCOUS MEM Q2H PRN PRN PRN Reason: SORE THROAT Topiramate (Topiramate 100 Mg Tablet) 100 mg PO BID [facility] Last Admin: 04/27/20 09:19 Dose: 100 mg Documented by: STROKE Vital Signs/Narrative: Vital Signs Temp Pulse Resp BP Pulse Ox 04/27/20 09:03 97.4 F L 100 18 124/83 H 99 Medical Necessity - Tobacco Use Smoking Status: Never smoker Assessment/Plan All Active Problems SILVINA (acute kidney injury) (Acute) Hypokalemia due to excessive gastrointestinal loss of potassium (Acute) Dehydration (Acute) Severe sepsis (Acute) Lower respiratory tract infection (Acute) Salmonella bacteremia (Acute) Patient is a 49-year-old gentleman admitted with diarrhea. Stool and blood cultures both came back positive for Salmonella has since been managed with Rocephin 1. Severe sepsis secondary to Salmonella bacteremia and Salmonella colitis ?Patient has been managed with Rocephin. Seen in consultation by infectious disease plan is for patient to be discharged home on ciprofloxacin once his diarrhea improves -04/27/2020: Patient reports having had 6 loose bowel movement during the night. 2. Hypokalemia ?Secondary to GI losses corrected per protocol 3. Acute kidney injury ?Managed with IV fluids; resolved 4. History of chronic migraines ?Patient was treated with Phenergan for recurrent symptoms 5. Elevated D-dimer ?CTA was negative for PE. Patient has also been tested 3 times for COVID-19 and has remained negative on all occasions 6. DVT prophylaxis ?Lovenox 7. Obesity with BMI of 32.9 ?Patient has history of previous gastric bypass Clinical Impression(s) from Imaging Studies Chest X-Ray 04/21/20 06:02 IMPRESSION: Degenerative changes, as described above. No demonstrated acute cardiopulmonary process. Electronically Signed: Karen Lopez, at 6:54 EDT Tel , Service support , Chest CTA 04/23/20 13:55 IMPRESSION: Normal CTA chest examination, without a demonstrated pulmonary embolism or arterial dissection. Electronically Signed: Nic Li MD at 15:47 EDT Tel , Service support , Inpatient E&M: [id number] Subs Hosp L2
[2020-04-27] MEDS: Ketorolac 30 MG/ML Syringe IV ×2 (11:29→19:56)
[2020-04-27] MEDS: 0.9% Saline Lock 10 ML Syringe IV ×2 (11:30→19:56)
[2020-04-27 14:17] VITALS: BP 118/84; PULSE 65; RESP 18; TEMP 36.7; O2SAT 100
[2020-04-27 19:54] VITALS: BP 140/90; PULSE 66; RESP 18; TEMP 36.9; O2SAT 99
[2020-04-27] MEDS: Temazepam 15 MG Capsule 30 MG PO (21:19)
[2020-04-27] MEDS: Rizatriptan Benzoate 5 MG Tablet PO (22:16)
[2020-04-27] MEDS: proMETHazine 25 MG/ML Syringe 12.5 MG IM (22:22)
[2020-04-28 02:35] VITALS: BP 129/83; PULSE 53; RESP 16; TEMP 36.3; O2SAT 98
[2020-04-28] MEDS: Enoxaparin 40 MG/0.4 ML Syringe SC (05:19)
[2020-04-28] MEDS: Gabapentin 300 MG Capsule PO (05:19)
[2020-04-28 06:23] LABS: Hemoglobin 10.6 g/dL (13.0-16.5); Mean Corp Hgb Conc 32.1 g/dL (32-36); Mean Corpuscular Hgb 24.7 pg (27.0-32.0); Mean Corpuscular Volume 76.9 fL (80-94); Mean Platelet Vol. 9.9 fl (6.2-12.0); Platelet Count 352 K/mm3 (150-450); RBC Distribution Width CV 16.5 % (11.6-14.6); RBC Distribution Width SD 45.2 fl (35.1-43.9); Red Blood Count 4.29 M/mm3 (4.6-6.2); White Blood Count 7.1 K/mm3 (4.4-11.0)
[2020-04-28 06:47] LABS: ALB/GLOB Ratio 0.7 RATIO (0.9-2.4); AST(SGOT) 25 U/L (15-37); Alanine Aminotransfer ALT/SGPT 41 U/L (16-61); Albumin, Serum 2.4 g/dL (3.2-5.0); Alkaline Phosphatase 92 U/L (45-117); Anion Gap 5 (5-15); BUN 4 mg/dL (7-18); BUN/Creat Ratio 5.9 RATIO (10-20); Calcium,Total 7.9 mg/dL (8.5-10.1); Chloride 119 mmol/L (98-107); Creatinine, Serum 0.68 mg/dL (0.70-1.30); EST Glomerular Filtration Rate 130 mL/min (>60); Est Glom Filt Rate - Afr Amer 158 mL/min (>60); Globulin 3.4 g/dL (2.2-4.2); Glucose 91 mg/dL (74-106); Phosphorus 2.3 mg/dL (2.5-4.9); Potassium 3.5 mmol/L (3.5-5.1); Protein, Total 5.8 g/dL (6.4-8.2); Sodium Level 145 mmol/L (136-145)
[2020-04-28 09:50] VITALS: BP 125/85; PULSE 80; RESP 18; TEMP 36.6; O2SAT 98
--- NOTE | 2020-04-28 14:59 | DS.PCM_ITS ---
Discharge Date and Diagnosis - Problem List Patient Problems: Active and Suspected Problems SILVINA (acute kidney injury) (Acute) Hypokalemia due to excessive gastrointestinal loss of potassium (Acute) Dehydration (Acute) Severe sepsis (Acute) Lower respiratory tract infection (Acute) Salmonella bacteremia (Acute) Date of Admission: 04/21/20 Date of Discharge: 04/28/20 - Primary Discharge Diagnosis Acute Problems: Active Problems SILVINA (acute kidney injury) (Acute) Hypokalemia due to excessive gastrointestinal loss of potassium (Acute) Dehydration (Acute) Severe sepsis (Acute) Lower respiratory tract infection (Acute) Salmonella bacteremia (Acute) - Secondary Discharge Diagnosis Chronic Problems: Chronic Problems PTSD (post-traumatic stress disorder) (Chronic) Hospital Course and Treatment Imaging Results: Clinical Impression(s) from Imaging Studies Chest X-Ray 04/21/20 06:02 IMPRESSION: Degenerative changes, as described above. No demonstrated acute cardiopulmonary process. Electronically Signed: Karen Lopez at 6:54 EDT Tel , Service support , Chest CTA 04/23/20 13:55 IMPRESSION: Normal CTA chest examination, without a demonstrated pulmonary embolism or arterial dissection. Electronically Signed: Nic Li MD at 15:47 EDT Tel , Service support , Consults: ID Operations: None Procedures: None Summary of Care Provided: PEr HPI: Mr Davison is 49 yo male who presented to the ED on 04/21/2020 with severe myalgias, DEJESUS, fevers, diaphoresis, a non-productive cough, decreased po intake and severe diarrhea that all started on but got significantly worse in the last 12-18 hrs. He states that his diarrhea is watery and profuse and that he has had about 10-12 BM overnight. He denies any recent abx usage or hospitalizations. 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 His only PMH is PTSD and takes medications only for this. His temp in the ED was 100.9 he is tachycardic and tachypneic. Sats are stable on RA. His white count is 24.3. His D-dimer is 8.23. He is mildly hyponatremic, markedly hypokalemic at 2.7, his HCO3 is 14, BUN is 20 and sCr is 2.18. COVID-19 is pending at admission. Hospital Course: 1. Severe sepsis secondary to Salmonella bacteremia and Salmonella colitis/SILVINA/[id number]-gpor-old male from [place] he ate at [facility] and started having abdominal pain and diarrhea. He was found to have salmonella in his stool culture as well as in his blood cultures. He improved fairly quickly on Rocephin and infectious disease was consulted and felt that he would do fine on Cipro p.o. twice daily for 10 more days after discharge. He feels much better today and would like to go home, he states that the number of bowel movements he is having has significantly decreased. Also with IV fluid supplementation and potassium supplementation both his SILVINA and his hypokalemia have resolved prior to discharge. I discussed with him the risks and benefits of discharge today and he expressed understanding. 2. Elevated D-dimer-he had a CTA of his chest which was negative for PE and he has been tested for Covid 3 times all of which were negative. D-dimer is likely elevated secondary to his colitis and bacteremia 3. Anxiety, depression, migraines are all chronic illnesses which complicate his care. His home medications were continued where appropriate. Patient Problems: Active and Suspected Problems SILVINA (acute kidney injury) (Acute) Hypokalemia due to excessive gastrointestinal loss of potassium (Acute) Dehydration (Acute) Severe sepsis (Acute) Lower respiratory tract infection (Acute) Salmonella bacteremia (Acute) - Physical Exam Vitals/I&O's: Vital Signs Temp Pulse Resp BP Pulse Ox 97.9 F 80 18 125/85 H 98 04/28/20 09:50 04/28/20 09:50 04/28/20 09:50 04/28/20 09:50 04/28/20 09:50 Oxygen Delivery Method Room Air Weight: 260 lb 12.909 oz Body Mass Index (BMI) 32.1 Intake and Output for Last 24 Hours 04/26/20 04/27/20 04/28/20 23:59 23:59 23:59 Intake Total 4732.5 / 5192.5 5350 / 5850 2595 / 2595 Output Total 350 / 1750 3900 / 4200 800 / 800 Balance 4382.5 / 3442.5 1450 / 1650 1795 / 1795 General: Alert, Oriented x3, Cooperative, No apparent distress HEENT: Atraumatic, PERRLA, EOMI, Normocephalic Oral: Moist Mucosa Neck: Supple, No JVD Lungs: Clear to auscultation, Normal air movement, No rhonchi, No wheeze, No rales Cardiovascular: Regular rate, Regular Rhythm, Normal S1, Normal S2, No murmurs Abdomen: Soft, Non Tender, Non-Distended, No Hepato-splenomegaly Extremities: No edema, Capillary Refill Less than 3 Seconds Skin: No rashes, No breakdown Neurological: Neuro grossly intact, Sensory exam intact to light touch and pain Psych/Mental Status: Normal Affect, Appropriate Microbiology Past 72 Hours 04/23/20 06:30 Blood Culture (Wb) - Arm Left Blood Culture - Final No growth in 5 days. 04/21/20 05:35 Blood Culture (Wb) - Anticubital Right Blood Culture - Final Presumptive Salmonella Group 04/21/20 08:15 Stool Enteric Bacteriology - Final Salmonella Sp. 04/21/20 08:15 Stool C. difficile DNA Amplification - Final 04/21/20 05:35 Blood Culture (Wb) - Right Hand Blood Culture - Final Gram negative fili Laboratory Results 04/28/20 05:30: WBC 7.1, RBC 4.29 L, Hgb 10.6 L, Hct 33.0 L, MCV 76.9 L, MCH 24.7 L, MCHC 32.1, RDW Std Deviation 45.2 H, RDW Coeff of Angella 16.5 H, Plt Count 352, MPV 9.9 04/28/20 05:30: Sodium 145, Potassium 3.5, Chloride 119 H, Carbon Dioxide 21.0, Anion Gap 5, BUN 4 L, Creatinine 0.68 L, Estim Creat Clear Calc 151.10, Est GFR (MDRD) Af Amer 158, Est GFR (MDRD) Non-Af 130, BUN/Creatinine Ratio 5.9 L, Glucose 91, Calcium 7.9 L, Phosphorus 2.3 L, Magnesium 2.0, Total Bilirubin 0.30, AST 25, ALT 41, Alkaline Phosphatase 92, Total Protein 5.8 L, Albumin 2.4 L, Globulin 3.4, Albumin/Globulin Ratio 0.7 L Discharge Activity: Return to Normal Activity Weight Bearing Status: Weight bearing as tolerated Call your doctor if you observe: Fever of 101 or Higher, Shortness of breath, Dizziness, - - persistent diarrhea Home Medications: Medications to take at Discharge Gabapentin 300 mg PO TID 04/21/20 Lidocaine 1 ea TP DAILY PRN 04/21/20 Temazepam 30 mg PO QHS 04/21/20 Testosterone 30 mg TD DAILY 04/21/20 Topiramate 100 mg PO BID 04/21/20 Vortioxetine Hydrobromide [Trintellix] 10 mg PO DAILY 04/21/20 busPIRone [Buspar] 10 mg PO TID 04/21/20 Ciprofloxacin HCl 500 mg PO BID 10 Days #20 tab 04/25/20 Potassium Chloride [K-Dur] 40 meq PO DAILY #20 tab 04/25/20 Following Prescriptions Were Given to Patient: Ciprofloxacin HCl 500 mg PO BID 10 Days #20 tab Transmission Status: Received by [id number] Potassium Chloride [K-Dur] 40 meq PO DAILY #20 tab [facility]: [id number] Primary Care Physician: Venancio Doctor,Out of [NON-STAFF] - Please follow up with your Primary Care Physician in: 1-2 weeks Patient Instructions: Salmonella Infection (Salmonellosis), Dehydration, Acute Kidney Failure, ED Food Poison Or Gastroenteritis Disposition: Home Minutes spent on discharge:: 35 Patient Condition:: Stable Medical Necessity - Tobacco Use Smoking Status: Never smoker Meaningful Use Info Meaningful Use Diagnoses (Choose all that apply): None applicable Inpatient E&M: [id number] Disch Hosp
== END 2020-04-28 10:16 | disposition home or self-care (01) | DRG 871 ==
LOC: ED 06:36 → ICU 08:32 → MS3 04-23 07:29 → ICU 04-23 08:58 → MS3 04-23 08:58
PROVIDERS: Internal Medicine; Student in an Organized Health Care Education/Training Program; Admitting Provider Internal Medicine; Emergency Provider Emergency Medicine; Visit Provider Family Medicine
DX: A02.1 Salmonella sepsis (principal); N17.0 Acute kidney failure with tubular necrosis; E87.1 Hypo-osmolality and hyponatremia; E87.2 Acidosis; A02.0 Salmonella enteritis; R65.20 Severe sepsis without septic shock; Z23 Encounter for immunization; E87.6 Hypokalemia; E86.0 Dehydration; F43.12 Post-traumatic stress disorder, chronic; J22 Unspecified acute lower respiratory infection; F17.220 Nicotine dependence, chewing tobacco, uncomplicated; G43.909 Migraine, unspecified, not intractable, without status migrainosus; Z98.84 Bariatric surgery status; Z68.32 Body mass index [BMI] 32.0-32.9, adult; E66.9 Obesity, unspecified
CPT/HCPCS: 36415; 71045; 71275; 80053; 82803; 83605; 83735; 84100; 84443; 84484; 85025; 85027; 85379; 85610; 85730; 87040; 87077; 87186; 87493; 87506; 87635; 93005; 94640; 97110; 97116; 97162; 97165; 97530; 97535; 99251; 99283; 99285; 99406; J7030; J7040; J7120; Q9967; 90686; A4216; G0463; J0696; U0003